=== PATIENT | male | born 1985 | race Caucasian/White ===

== ENCOUNTER → 2017-09-02 | Outpatient (CLI) | payer OTHER ==
--- NOTE | 2017-09-02 15:50 | CT ---
EXAMINATION TYPE: CT abdomen pelvis w con DATE OF EXAM: 09/02/2017 COMPARISON: NONE HISTORY: Left upper abdomen pain for past [address] DLP: 1819 mGycm CONTRAST: CT scan of the abdomen and pelvis is performed with Oral Contrast and with IV Contrast, patient injec nacho with 100 mL of Isovue 300. FINDINGS: LUNG BASES-: No visible nodule. No infiltrate. LIVER/GB: No calcified gallstones. No space occupying hepatic lesion. Biliary tree is of normal ca liber. PANCREAS: No inflammation. No distinct mass. SPLEEN: No splenic enlargement. No lesion seen. ADRENALS: No nodule. No thickening. KIDNEYS/BLADDER: No hydronephrosis. No nephrolithiasis. No distinct renal mass. Urinary bladder g rossly unremarkable. BOWEL: Normal appendix. Normal bowel caliber. No inflammation. GENITAL ORGANS: No gross abnormality. LYMPH NODES: No greater than 1cm abdominal or pelvic lymph nodes are appreciated. AORTA: No significant abnormality. OSSEOUS STRUCTURES: No significant abnormality is seen. OTHER: No significant additional abnormality is seen. IMPRESSION: 1. There is no significant abnormality to account for the patient's symptoms.
== END | disposition home or self-care (01) ==
LOC: RADCTMAIN 13:31
PROVIDERS: ATTEND Family Medicine
DX: R10.84 Generalized abdominal pain (principal)
CPT/HCPCS: 74177; Q9967

== ENCOUNTER 2019-06-07 13:06 | Emergency (ER) | payer OTHER ==
[2019-06-07 13:33] VITALS: TEMP 98.6
--- NOTE | 2019-06-07 14:47 | ED ---
General Adult HPI - General Chief complaint: Chest Pain Stated complaint: Chest/lung pain Time Seen by Provider: 06/07/19 14:13 Source: patient, RN notes reviewed, old records reviewed Mode of arrival: ambulatory Limitations: no limitations - History of Present Illness Initial comments: 34-year-old male presenting for evaluation of chest pain. Patient states over the past several days he's had wheezing episodes of left-sided chest pain. Episodes lasting approximately 5 minutes. Patient is not currently on any medications. He does not follow regularly with a physician. He has been told in the past that he has high blood pressure but is not taking any medication. He has a family history of CAD. He denies any pain at the time my evaluation. Patient denies associated nausea vomiting. No diaphoresis. Secondary complaint of left flank pain. This is also been intermittent. He denies dysuria or hematuria. Denies testicular pain. Denies fever. - Related Data Previous Rx's Medication Instructions Recorded Citalopram Hydrobromide [CeleXA] 20 mg PO DAILY #30 tab 04/18/16 LORazepam [Ativan] 0.5 mg PO HS #30 tab 16 traZODone HCL [Desyrel] 50 mg PO HS #30 tab 16 Allergies Allergy/AdvReac Type Severity Reaction Status Date / Time No Known Allergies Allergy Verified 06/07/19 13:33 Review of Systems ROS Statement: Those systems with pertinent positive or pertinent negative responses have been documented in the HPI. ROS Other: All systems not noted in ROS Statement are negative. Past Medical History Past Medical History: Hypertension Additional Past Medical History / Comment(s): Hypertension, currently on no treatment History of Any Multi-Drug Resistant Organisms: None Reported Past Surgical History: Adenoidectomy, Appendectomy, Orthopedic Surgery, Tonsillectomy Additional Past Surgical History / Comment(s): Colonoscopy, ORIF L ankle. Past Anesthesia/Blood Transfusion Reactions: No Reported Reaction Past Psychological History: Depression Smoking Status: Never smoker Past Alcohol Use History: Occasional Past Drug Use History: Marijuana - Past Family History Father Family Medical History: Diabetes Mellitus, Hypertension Mother Family Medical History: Hypertension General Exam Limitations: no limitations General appearance: alert, in no apparent distress Head exam: Present: atraumatic, normocephalic Eye exam: Present: normal appearance, PERRL ENT exam: Present: normal exam Neck exam: Present: normal inspection. Absent: tenderness, meningismus Respiratory exam: Present: normal lung sounds bilaterally. Absent: respiratory distress, wheezes Cardiovascular Exam: Present: regular rate, normal rhythm GI/Abdominal exam: Present: soft. Absent: distended, tenderness, guarding Extremities exam: Present: normal inspection, full ROM, normal capillary refill. Absent: pedal edema, calf tenderness Back exam: Present: normal inspection, full ROM Neurological exam: Present: alert, oriented X3, CN II-XII intact. Absent: motor sensory deficit Psychiatric exam: Present: normal affect, normal mood Skin exam: Present: warm, dry, intact. Absent: cyanosis, diaphoretic Course Vital Signs 06/07/19 06/07/19 06/07/19 13:31 14:29 14:30 Temperature 98.6 F Pulse Rate 90 Pulse Rate [ Technical Product Manager ] Respiratory 18 Rate Blood Pressure 159/105 O2 Sat by Pulse 99 100 100 Oximetry 06/07/19 06/07/19 06/07/19 14:37 15:00 15:30 Temperature Pulse Rate 89 Pulse Rate [ 106 H Technical Product Manager ] Respiratory 6 L Rate Blood Pressure 179/114 179/114 O2 Sat by Pulse 100 Oximetry 06/07/19 16:00 Temperature Pulse Rate 96 Pulse Rate [ Technical Product Manager ] Respiratory 20 Rate Blood Pressure 145/110 O2 Sat by Pulse 98 Oximetry EKG Findings - EKG Comments: EKG Findings:: EKG: Normal sinus rhythm with sinus arrhythmia, rate of 92, MS interval 142, QRS duration 84, QTC 4:30, no ST segment elevation, artifact in the precordial leads V2 and V3. Medical Decision Making - Medical Decision Making 34-year-old male presenting with intermittent chest pain. No pain at the time my evaluation. Symptoms have been ongoing for several weeks. He states he has had intermittent chest pain for years. EKG is sinus rhythm with no ST segment elevation. Chest x-ray is negative for focal pneumonia, no pneumothorax, no acute findings. He has normal CBC, mild hypokalemia and is instructed on oral potassium replacement. He has a mildly elevated bilirubin at 1.9 with no abdo isamar pain, no vomiting, no transaminitis. His troponin is negative and symptoms have been ongoing for several weeks. He has good follow-up with his primary care physician. His blood pressure is elevated with history of hypertension and not on medications currently. He will keep a log of his blood pressure and follow-up with his primary care physician regarding the need to be restarted on antihypertensive medications. He will return to the emergency department with worsening or changing symptoms. - Lab Data Result diagrams: 06/07/19 14:40 06/07/19 14:40 Lab Results 06/07/19 06/07/19 06/07/19 Range/Units 14:40 14:40 14:40 WBC 8.7 (3.8-10.6) k/uL RBC 5.06 (4.30-5.90) m/uL Hgb 15.9 (13.0-17.5) gm/dL Hct 46.8 (39.0-53.0) % MCV 92.5 (80.0-100.0) fL MCH 31.5 (25.0-35.0) pg MCHC 34.0 (31.0-37.0) g/dL RDW 12.3 (11.5-15.5) % Plt Count 271 (150-450) k/uL Neutrophils % 77 % Lymphocytes % 16 % Monocytes % 5 % Eosinophils % 1 % Basophils % 1 % Neutrophils # 6.6 (1.3-7.7) k/uL Lymphocytes # 1.4 (1.0-4.8) k/uL Monocytes # 0.4 (0-1.0) k/uL Eosinophils # 0.1 (0-0.7) k/uL Basophils # 0.1 (0-0.2) k/uL PT 10.3 (9.0-12.0) sec INR 1.0 (<1.2) APTT 25.1 (22.0-30.0) sec Sodium 136 L (137-145) mmol/L Potassium 3.4 L (3.5-5.1) mmol/L Chloride 98 (98-107) mmol/L Carbon Dioxide 26 (22-30) mmol/L Anion Gap 12 mmol/L BUN 7 L (9-20) mg/dL Creatinine 0.82 (0.66-1.25) mg/dL Est GFR (CKD-EPI)AfAm >90 (>60 ml/min/1.73 sqM) Est GFR (CKD-EPI)NonAf >90 (>60 ml/min/1.73 sqM) Glucose 99 (74-99) mg/dL Calcium 9.5 (8.4-10.2) mg/dL Magnesium 1.9 (1.6-2.3) mg/dL Total Bilirubin 1.9 H (0.2-1.3) mg/dL AST 28 (17-59) U/L ALT 15 (4-49) U/L Alkaline Phosphatase 89 (38-126) U/L Troponin I (0.000-0.034) ng/mL Total Protein 8.4 H (6.3-8.2) g/dL Albumin 5.1 H (3.5-5.0) g/dL Urine Color Urine Appearance (Clear) Urine pH (5.0-8.0) Ur Specific Fate (1.001-1.035) Urine Protein (Negative) Urine Glucose (UA) (Negative) Urine Ketones (Negative) Urine Blood (Negative) Urine Nitrite (Negative) Urine Bilirubin (Negative) Urine Urobilinogen (<2.0) mg/dL Ur Leukocyte Esterase (Negative) Urine RBC (0-5) /hpf Urine WBC (0-5) /hpf Urine Bacteria (None) /hpf Hyaline Casts (0-2) /lpf Urine Mucus (None) /hpf 06/07/19 06/07/19 Range/Units 14:40 15:55 WBC (3.8-10.6) k/uL RBC (4.30-5.90) m/uL Hgb (13.0-17.5) gm/dL Hct (39.0-53.0) % MCV (80.0-100.0) fL MCH (25.0-35.0) pg MCHC (31.0-37.0) g/dL RDW (11.5-15.5) % Plt Count (150-450) k/uL Neutrophils % % Lymphocytes % % Monocytes % % Eosinophils % % Basophils % % Neutrophils # (1.3-7.7) k/uL Lymphocytes # (1.0-4.8) k/uL Monocytes # (0-1.0) k/uL Eosinophils # (0-0.7) k/uL Basophils # (0-0.2) k/uL PT (9.0-12.0) sec INR (<1.2) APTT (22.0-30.0) sec Sodium (137-145) mmol/L Potassium (3.5-5.1) mmol/L Chloride (98-107) mmol/L Carbon Dioxide (22-30) mmol/L Anion Gap mmol/L BUN (9-20) mg/dL Creatinine (0.66-1.25) mg/dL Est GFR (CKD-EPI)AfAm (>60 ml/min/1.73 sqM) Est GFR (CKD-EPI)NonAf (>60 ml/min/1.73 sqM) Glucose (74-99) mg/dL Calcium (8.4-10.2) mg/dL Magnesium (1.6-2.3) mg/dL Total Bilirubin (0.2-1.3) mg/dL AST (17-59) U/L ALT (4-49) U/L Alkaline Phosphatase (38-126) U/L Troponin I <0.012 (0.000-0.034) ng/mL Total Protein (6.3-8.2) g/dL Albumin (3.5-5.0) g/dL Urine Color Yellow Urine Appearance Clear (Clear) Urine pH 6.5 (5.0-8.0) Ur Specific Fate 1.022 (1.001-1.035) Urine Protein 1+ H (Negative) Urine Glucose (UA) Negative (Negative) Urine Ketones Negative (Negative) Urine Blood Negative (Negative) Urine Nitrite Negative (Negative) Urine Bilirubin Negative (Negative) Urine Urobilinogen <2.0 (<2.0) mg/dL Ur Leukocyte Esterase Negative (Negative) Urine RBC 1 (0-5) /hpf Urine WBC 3 (0-5) /hpf Urine Bacteria Rare H (None) /hpf Hyaline Casts 6 H (0-2) /lpf Urine Mucus Many H (None) /hpf Disposition Clinical Impression: Chest pain, Hypertension Disposition: HOME SELF-CARE Condition: Good Instructions (If sedation given, give patient instructions): Chest Pain (ED), Hypertension (ED) Is patient prescribed a controlled substance at d/c from ED?: No Referrals: Kiet Tomlin Jr, DO [Primary Care Provider] - 1-2 days Time of Disposition: 16:41
[2019-06-07 14:54] LABS: Basophils # (A) 0.1 k/uL (0-0.2); Basophils % (A) 1 %; Eosinophils # (A) 0.1 k/uL (0-0.7); Eosinophils % (A) 1 %; HCT 46.8 % (39.0-53.0); HGB 15.9 gm/dL (13.0-17.5); Lymphocytes # (A) 1.4 k/uL (1.0-4.8); Lymphocytes % (A) 16 %; MCH 31.5 pg (25.0-35.0); MCV 92.5 fL (80.0-100.0); Mean Platelet Volume 7.4; Monocytes # (A) 0.4 k/uL (0-1.0); Monocytes % (A) 5 %; Neutrophils # (A) 6.6 k/uL (1.3-7.7); Neutrophils % (A) 77 %; Platelet Count 271 k/uL (150-450); RBC 5.06 m/uL (4.30-5.90); RDW 12.3 % (11.5-15.5); WBC 8.7 k/uL (3.8-10.6)
[2019-06-07 15:03] LABS: ALT 15 U/L (4-49); AST 28 U/L (17-59); African American GFR (CKD) >90 (>60 ml/min/1.73 sqM); Albumin 5.1 g/dL (3.5-5.0); Alkaline Phosphatase 89 U/L (38-126); Anion Gap 12 mmol/L; Blood Urea Nitrogen 7 mg/dL (9-20); Calcium 9.5 mg/dL (8.4-10.2); Carbon Dioxide 26 mmol/L (22-30); Chloride 98 mmol/L (98-107); Glucose 99 mg/dL (74-99); Magnesium 1.9 mg/dL (1.6-2.3); Non-African American GFR(CKD) >90 (>60 ml/min/1.73 sqM); Potassium 3.4 mmol/L (3.5-5.1); Sodium 136 mmol/L (137-145); Total Bilirubin 1.9 mg/dL (0.2-1.3); Total Protein 8.4 g/dL (6.3-8.2)
--- NOTE | 2019-06-07 15:04 | XR ---
EXAMINATION TYPE: XR chest 2V DATE OF EXAM: 06/07/2019 COMPARISON: 04/15/2016 INDICATION: Chest pain TECHNIQUE: Frontal and lateral views of the chest are obtained. FINDINGS: The heart size is normal. The pulmonary vasculature is normal. The lungs are clear. IMPRESSION: 1. No acute pulmonary process.
[2019-06-07 15:10] LABS: Partial Thromboplastin Time 25.1 sec (22.0-30.0); Prothrombin Time 10.3 sec (9.0-12.0)
[2019-06-07 16:25] LABS: Appearance,Urine Clear (Clear); Bacteria,Urine Rare /hpf; Bilirubin,Urine Negative (Negative); Blood,Urine Negative (Negative); Color,Urine Yellow; Glucose,Urine (UA) Negative (Negative); Hyaline Casts,Urine 6 /lpf (0-2); Ketones,Urine Negative (Negative); Leukocyte Esterase,Urine Negative (Negative); Mucus,Urine Many /hpf; Nitrite,Urine Negative (Negative); PH, Urine 6.5 (5.0-8.0); Protein,Urine 1+ (Negative); RBC,Urine 1 /hpf (0-5); Specific Gravity,Urine 1.022 (1.001-1.035); Urobilinogen,Urine <2.0 mg/dL (<2.0); WBC,Urine 3 /hpf (0-5)
[2019-06-07 16:30] VITALS: BP 145/110; PULSE 96; RESP 20
== END 2019-06-07 17:05 | disposition home or self-care (01) ==
LOC: EC 13:06
DX: I10 Essential (primary) hypertension (principal); R07.9 Chest pain, unspecified; E87.6 Hypokalemia; R79.89 Other specified abnormal findings of blood chemistry; R10.9 Unspecified abdominal pain; Z90.49 Acquired absence of other specified parts of digestive tract; Z82.49 Family history of ischemic heart disease and other diseases of the circulatory system
CPT/HCPCS: 36415; 71046; 80053; 81001; 83735; 84484; 85025; 85610; 85730; 99285

== ENCOUNTER 2019-10-27 10:56 | Observation (INO) | payer OTHER ==
[2019-10-27] MEDS ORDERED: ASPIRIN 81 MG PO STA (11:40)
[2019-10-27] MEDS ORDERED: hydrALAZINE HCL 25 MG TAB PO STA (11:40)
[2019-10-27 12:10] LABS: Basophils % (A) 0 %; Eosinophils # (A) 0.1 k/uL (0-0.7); Eosinophils % (A) 1 %; HCT 47.5 % (39.0-53.0); HGB 16.3 gm/dL (13.0-17.5); Lymphocytes % (A) 11 %; MCH 32.9 pg (25.0-35.0); MCHC 34.3 g/dL (31.0-37.0); MCV 95.8 fL (80.0-100.0); Mean Platelet Volume 7.4; Monocytes # (A) 0.5 k/uL (0-1.0); Monocytes % (A) 5 %; Neutrophils % (A) 82 %; Platelet Count 342 k/uL (150-450); RBC 4.95 m/uL (4.30-5.90); RDW 12.2 % (11.5-15.5); WBC 9.7 k/uL (3.8-10.6)
[2019-10-27 12:22] LABS: ALT 56 U/L (4-49); AST 71 U/L (17-59); African American GFR (CKD) >90 (>60 ml/min/1.73 sqM); Albumin 4.7 g/dL (3.5-5.0); Alkaline Phosphatase 86 U/L (38-126); Anion Gap 14 mmol/L; Blood Urea Nitrogen 11 mg/dL (9-20); Calcium 9.3 mg/dL (8.4-10.2); Carbon Dioxide 22 mmol/L (22-30); Chloride 100 mmol/L (98-107); Glucose 86 mg/dL (74-99); Magnesium 1.8 mg/dL (1.6-2.3); Non-African American GFR(CKD) >90 (>60 ml/min/1.73 sqM); Potassium 4.4 mmol/L (3.5-5.1); Sodium 136 mmol/L (137-145); Total Bilirubin 1.3 mg/dL (0.2-1.3); Total Protein 7.8 g/dL (6.3-8.2)
[2019-10-27 12:27] LABS: INR 1.1 (<1.2); Partial Thromboplastin Time 25.2 sec (22.0-30.0); Prothrombin Time 10.9 sec (9.0-12.0)
[2019-10-27 12:28] LABS: D-Dimer <0.17 mg/L FEU (<0.60)
--- NOTE | 2019-10-27 12:47 | XR ---
EXAMINATION TYPE: XR chest 2V DATE OF EXAM: 10/27/2019 COMPARISON: Chest x-ray 06/07/2019, CT 09/02/2017 HISTORY: Chest pain TECHNIQUE: Frontal and lateral views of the chest are obtained. FINDINGS: There is no focal air space opacity, pleural effusion, or pneumothorax seen. The cardiac silhouette size is within normal limits. The osseous structures are intact. There are overlying car diac leads. Blunting of the posterior costophrenic angle on the lateral exam is a chronic finding. IMPRESSION: No acute cardiopulmonary process.
[2019-10-27] MEDS ORDERED: LABETALOL 5 MG/ML VIAL MDV IVP STA ×2 (13:12→15:25)
--- NOTE | 2019-10-27 13:17 | ED ---
Chest Pain HPI - General Chief Complaint: Chest Pain Stated Complaint: chest muscle pain/lightheaded & dizziness Time Seen by Provider: 10/27/19 11:40 Source: patient Mode of arrival: ambulatory Limitations: no limitations - History of Present Illness Initial Comments: 34-year-old male presented for chief complaint of chest pain, shortness of breath and lightheadedness. Patient states the past and states he has had left- sided chest pain, achey in nature he states it comes and goes in intensity but is constantly present. Patietn states it increases with motion at times/palpation. Denies exercising, trauma, repetitive injury. Denies fever, URI symptoms. States today the pain seemed to increase, he states he felt warm and felt sweaty. Patient states that on and off for the last 6-7 days he has at time felt SOB and light headed. Patient states that his father has a cholesterol issue and has had cardiac history including WI at age 26. Patient states he himself has had HTN since age 20 and has been off medications secondary to an outstanding bill with Dr. Ley office. Patient denies additional complaints. Denies back pain, hemoptysis, leg swelling, jaw pain. Patient does admit to the pain being pleurtic at time. Patient denies clotting disorder or history of DVT/PE, denies recent surgery/injury or fracture, hx of cancer. Upon arrival taylor martin does not appear in distress but his BP is elevated. - Related Data Home Medications Medication Instructions Recorded Confirmed Escitalopram [Lexapro] 10 mg PO DAILY 10/27/19 10/27/19 Allergies Allergy/AdvReac Type Severity Reaction Status Date / Time No Known Allergies Allergy Verified 06/07/19 13:33 Review of Systems ROS Statement: Those systems with pertinent positive or pertinent negative responses have been documented in the HPI. ROS Other: All systems not noted in ROS Statement are negative. Past Medical History Past Medical History: Hypertension Additional Past Medical History / Comment(s): Hypertension, currently on no treatment History of Any Multi-Drug Resistant Organisms: None Reported Past Surgical History: Adenoidectomy, Appendectomy, Orthopedic Surgery, Tonsillectomy Additional Past Surgical History / Comment(s): Colonoscopy, ORIF L ankle. Past Anesthesia/Blood Transfusion Reactions: No Reported Reaction Past Psychological History: Depression Smoking Status: Never smoker Past Alcohol Use History: Occasional Past Drug Use History: Marijuana - Past Family History Father Family Medical History: Diabetes Mellitus, Hypertension Mother Family Medical History: Hypertension General Exam - General Exam Comments Initial Comments: General: The patient is awake and alert, in no distress Eye: +3 mm pupils are equal, round and reactive to light, extra-ocular movements are intact. No nystagmus. There is normal conjunctiva bilaterally. No signs of icterus. Ears, nose, mouth and throat: There are moist mucous membranes and no oral lesions. Neck: The neck is supple, there is no tenderness or JVD. Cardiovascular: There is a regular rate and rhythm. No murmur, rub or gallop is appreciated. Respiratory: Lungs are clear to auscultation, respirations are non-labored, breath sounds are equal. No wheezes, stridor, rales, or rhonchi. Gastrointestinal: Soft, non-distended, non-tender abdomen without masses or organomegaly noted. There is no rebound or guarding present. Musculoskeletal: Normal ROM, no tenderness. Strength 5/5. Sensation intact. Radial pulses equal bilaterally 2+. Neurological: A&O x 3. CN II-XII intact grossly, There are no obvious motor or sensory deficits. Coordination appears grossly intact. Speech is normal. Skin: Skin is warm and dry and no rashes or lesions are noted. No Leg swelling, LE edema. Psychiatric: Cooperative, appropriate mood & affect, normal judgment. 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 ] Respiratory 20 17 Rate Blood Pressure 166/113 154/110 O2 Sat by Pulse 100 98 99 Oximetry 10/27/19 10/27/19 10/27/19 11:40 11:50 11:52 Temperature Pulse Rate 95 102 H 103 H Pulse Rate [ Road Service Locksmith ] Respiratory 17 20 18 Rate Blood Pressure 146/107 152/110 152/110 O2 Sat by Pulse 100 99 98 Oximetry 10/27/19 10/27/19 10/27/19 12:10 12:17 12:30 Temperature Pulse Rate 101 H 107 H Pulse Rate [ [address] Locksmith ] Respiratory 17 19 Rate Blood Pressure 172/111 166/108 O2 Sat by Pulse 100 Oximetry 10/27/19 10/27/19 10/27/19 12:40 13:00 13:11 Temperature 98.7 F Pulse Rate 106 H 105 H Pulse Rate [ Road Service Locksmith ] Respiratory 16 19 Rate Blood Pressure 151/113 164/114 O2 Sat by Pulse 100 98 Oximetry Chest Pain MDM - MDM 32 mL presented for chief complaint of chest pain. It is somewhat reproducible and increases with motion however patient states that it increased today he is diaphoretic. Patient has elevated blood pressure has been uncontrolled for 6 months and a strong familial history for premature CAD. This is concerning for a possible cardiac cause althought clinical picture is very mixed givne history provided and appears reproducible. Patient initial troponin (-). BP remains elevated. patient dimer (-). He will be admitted for BP management and CP r/o. Patient agreeable to admission and care plan- attending provider. Dr. Nuñez is agreeable to care plan. Disposition Clinical Impression: Chest pain, Elevated blood pressure reading Disposition: ADMITTED IP TO THIS [facility] Condition: Stable Is patient prescribed a controlled substance at d/c from ED?: No Referrals: Kiet Tomlin Jr, [Primary Care Provider] - 1-2 days Time of Disposition: 13:40 Decision to Admit Reason: Admit from EC Decision Date: 10/27/19 Decision Time: 13:40
[2019-10-27] MEDS ORDERED: NITROGLYCERIN SL TABS 0.4 MG TAB SUBLINGUAL PRN (13:37)
[2019-10-27] MEDS ORDERED: LORazepam 1 MG TAB PO STA (13:40)
[2019-10-28] MEDS ORDERED: ACETAMINOPHEN TAB 325 MG TAB PO STA ×2 (00:28→04:24)
[2019-10-28 04:17] LABS: Cholesterol 189 mg/dL (<200); HDL Cholesterol 81 mg/dL (40-60)
[2019-10-28 04:24] LABS: Triglycerides 593 mg/dL (<150)
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
[2019-10-28] MEDS: ASPIRIN 325 MG TAB PO SCH (11:50)
[2019-10-28] MEDS: ESCITALOPRAM 10 MG TAB PO SCH (11:51)
--- NOTE | 2019-10-28 13:39 | ECHOF ---
Referral Reason:CP MEASUREMENTS -------- HEIGHT: 172.7 cm WEIGHT: 86.2 kg BP: 141/94 RVIDd: 3.2 cm (< 3.3) IVSd: 1.2 cm (0.6 - 1.1) LVIDd: 5.1 cm (3.9 - 5.3) LVPWd: 1.0 cm (0.6 - 1.1) IVSs: 1.5 cm LVIDs: 3.8 cm LVPWs: 1.8 cm LA Diam: 3.4 cm (2.7 - 3.8) LAESV Index (A-L): 21.32 ml/m Ao Diam: 3.6 cm (2.0 - 3.7) AV Cusp: 2.7 cm (1.5 - 2.6) MV EXCURSION: 21.562 mm (> 18.000) MV EF SLOPE: 112 mm/s (70 - 150) EPSS: 1.3 cm MV E Alcides: 0.74 m/s MV DecT: 261 ms MV A Alcides: 0.64 m/s MV E/A Ratio: 1.16 FINDINGS -------- Sinus rhythm. This was a technically excellent study. The left ventricular size is normal. There is borderline concentric left ventricular hypertrophy. Overall left ventricular systolic function is mild-moderately impaired with, an EF between 40 - 45 % . The right ventricle is normal in size. Normal LA size by volume 22+/-6 ml/m2. The right atrium is normal in size. Interatrial and interventricular septum intact. The aortic valve is trileaflet and appears structurally normal. The mitral valve is normal. The tricuspid valve appears structurally normal. There is no pulmonic regurgitation present. The aortic root size is normal. Normal inferior vena cava with normal inspiratory collapse consistent with estimated right atrial pre ssure of 5 mmHg. There is no pericardial effusion. CONCLUSIONS -------- 1. Sinus rhythm. 2. This was a technically excellent study. 3. The left ventricular size is normal. 4. There is borderline concentric left ventricular hypertrophy. 5. Overall left ventricular systolic function is mild-moderately impaired with, an EF between 40 - 45 %. 6. The right ventricle is normal in size. 7. Normal LA size by volume 22+/-6 ml/m2. 8. The right atrium is normal in size. 9. Interatrial and interventricular septum intact. 10. The aortic valve is trileaflet and appears structurally normal. 11. The mitral valve is normal. 12. The tricuspid valve appears structurally normal. 13. There is no pulmonic regurgitation present. 14. The aortic root size is normal. 15. Normal inferior vena cava with normal inspiratory collapse consistent with estimated right atrial pressure of 5 mmHg. 16. There is no pericardial effusion. [employer]: Arely Camejo RDCS
[2019-10-28] MEDS ORDERED: SODIUM CHLORIDE 0.9% 1,000 ML in EMPTY BAG 1 BAG IV ONE (13:41)
[2019-10-28] MEDS ORDERED: ALPRAZolam 0.5 MG TAB PO PRN (13:41)
[2019-10-28] MEDS ORDERED: ATORVASTATIN 80 MG TAB PO STA (13:41)
[2019-10-28] MEDS ORDERED: ALPRAZolam 0.25 MG TAB PO PRN (13:41)
--- NOTE | 2019-10-28 13:43 | P.PN ---
Progress Note - Text Given the patient's impaired LV systolic function we recommended proceeding with cardiac catheterization to assess for underlying coronary artery disease. I have discussed the risks, benefits and alternative therapies for the above-mentioned procedure and for both sedation/analgesia as well as necessary blood product administration, if indicated, as they pertain to this patient. The patient has indicated understanding and acceptance of the risks and procedures discussed. Questions have been answered appropriately and he is agreeable to move forward with the above stated procedure. We also recommend initiation of Lopressor 25 mg twice a day, lisinopril 5 mg daily and Aldactone 25 mg daily.
[2019-10-28] MEDS: lisinopriL 5 MG TAB PO SCH (14:18)
[2019-10-28] MEDS: SPIRONOLACTONE 25 MG TAB PO SCH (14:18)
[2019-10-28] MEDS: METOPROLOL TARTRATE 25 MG TAB PO SCH ×2 (14:18→22:50)
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
[2019-10-28] MEDS ORDERED: HEPARIN SODIUM 1,000 UN/ML (10ML VL) ONE (17:44)
[2019-10-28] MEDS ORDERED: VERAPAMIL 2.5 MG/ML 2 ML AMP ONE (17:44)
[2019-10-28] MEDS ORDERED: LIDOCAINE 1% INJ 10MG/ML (20 ML MDV) ONE (17:44)
[2019-10-28] MEDS ORDERED: IV FLUID CONTINUATION 950 ML IV ONE (17:47)
[2019-10-28] MEDS ORDERED: fentaNYL (PF) 50 MCG/ML 2 ML AMP ONE (18:18)
[2019-10-28] MEDS ORDERED: MIDAZOLAM 2 MG/2 ML VIAL IV ONE ×2 (18:18→18:20)
[2019-10-28] MEDS ORDERED: fentaNYL (PF) 50 MCG/ML 2 ML AMP IV ONE (18:21)
[2019-10-28] MEDS ORDERED: LIDOCAINE 1% INJ 10MG/ML (20 ML MDV) SQ ONE (18:22)
[2019-10-28] MEDS ORDERED: VERAPAMIL SYRINGE (5 MG/10 ML) INTRAARTER ONE (18:25)
[2019-10-28] MEDS ORDERED: IOPAMIDOL-370 100ML BTL INJ ONE (18:39)
[2019-10-28] MEDS ORDERED: RX INFO: IV CONTRAST WAS GIVEN 1 EACH MISC MISCELLANE PRN (18:40)
[2019-10-28] MEDS ORDERED: SODIUM CHLORIDE 0.9% 1,000 ML IV SCH (18:45)
--- NOTE | 2019-10-28 19:32 | CC ---
CARDIAC CATHETERIZATION REPORT DATE OF SERVICE: 10/28/2019 PERFORMING PHYSICIAN: Rashaad Glass M.D. PROCEDURE PERFORMED: Selective right and left coronary angiogram. INDICATION: This is a very pleasant 34-year-old gentleman who presented to the hospital with chest discomfort and ruled out for acute coronary event. He underwent an echocardiogram and that revealed impaired LV function with EF between 40% and 45%. He underwent stress echocardiogram and that also came in to be concerning with evidence of wall motion abnormalities concerning for severe underlying coronary artery disease. Because of that a heart catheterization was advised. APPROACH: Right radial artery. COMPLICATIONS: None. LEVEL OF SEDATION: Moderate, with sedation length of 11 minutes. PROCEDURE DESCRIPTION: After obtaining informed consent, the patient was brought to the cardiac collaborating supervising physician. The right radial artery was cannulated using micropuncture technique. The micropuncture wire passed easily. Then I placed a 6-Ugandan sheath. I gave the patient 2 mg of verapamil IA and 8000 of heparin IV. Selective right and left coronary angiogram was performed using JR4 and JL3.5 catheters. Left heart catheterization was not performed. The procedure was completed without any complication. SELECTIVE CORONARY ANGIOGRAM: 1. The right coronary artery is a large-caliber vessel and it is a dominant vessel. The RCA is angiographically normal. It distally bifurcates into PDA and PLV branches. Both appeared to be angiographically normal. 2. The left main is angiographically normal. It bifurcates into LCX and LAD. 3. The LCX is a large-caliber vessel. It is a nondominant vessel. The LCX is angiographically normal. In the mid portion it gives rise to a large OM branch which appeared to be angiographically normal. 4. The LAD. The proximal LAD appeared to be angiographically normal. It gives rise to a large diagonal branch which seems to be normal. The mid and distal LAD appeared to be angiographically normal. The LAD in the proximal portion gives rise to first and second diagonal branches. Both appeared to be angiographically normal. CONCLUSION: 1. Normal coronary angiogram. 2. Nonischemic cardiomyopathy. POST-PROCEDURE MANAGEMENT: 1. Medical treatment. 2. Follow up with the patient. MMODL / IJN: [id number] /
--- NOTE | 2019-10-28 20:20 | ECHOS ---
STRESS ECHOCARDIOGRAM LUMASON: @@ Vial INDICATIONS: Status post. MEDICATIONS: BASELINE HEART RATE: 76 BASELINE BLOOD PRESSURE: 144/101 MAXIMUM HEART RATE: 185 MAXIMUM BLOOD PRESSURE: 196/98 85% MPHR: 160 100% MPHR: 188 METS: 12.1 MAXIMUM STAGE REACHED: 4 TOTAL EXERCISE TIME: 11:00 CLINICAL INFORMATION: STRESS DATA: Heart rate 76, pressure 144/101 mmHg. Baseline EKG showed sinus mechanism. The patient exercised on the treadmill according to Too protocol for a total of 11 minutes and achieved 12.1 METS. Max heart rate was 185, which is about 98% of maximum predicted heart rate. Maximum blood pressure was 196/98 mmHg. Clinically the patient did not have any symptoms of chest pain or chest discomfort. The EKG did not show any significant ST or T-wave abnormalities concerning for ischemia. ECHOCARDIOGRAM IMAGES: Echocardiogram images from parasternal long axis view, parasternal short axis view, apical 4- chamber and apical 2-chamber views were obtained as the baseline images, at the peak of the heart rate as well as on recovery. The baseline echocardiogram images showed impaired LV function with EF between 40% and 45% and during exercise and at the peak of the exercise, on the apical 4-chamber view there were some wall motion abnormalities in the mid septum concerning for severe underlying coronary artery disease. CONCLUSION: 1. Excellent exercise tolerance. 2. Normal EKG in response to exercise. 3. Abnormal echocardiogram in response to exercise with evidence of wall motion abnormalities concerning for severe underlying coronary artery disease. MMODL / IJN: [id number] /
[2019-10-28] MEDS: MELATONIN 5 MG TABLET PO SCH ×2 (22:50)
[2019-10-29 08:00] VITALS: BP 146/94; PULSE 84; RESP 18; TEMP 97.6
[2019-10-29] MEDS: ASPIRIN 325 MG TAB PO SCH (08:08)
[2019-10-29] MEDS: lisinopriL 5 MG TAB PO SCH (08:08)
[2019-10-29] MEDS: ESCITALOPRAM 10 MG TAB PO SCH (08:08)
[2019-10-29] MEDS: METOPROLOL TARTRATE 25 MG TAB PO SCH (08:08)
[2019-10-29] MEDS: SPIRONOLACTONE 25 MG TAB PO SCH (08:08)
[2019-10-29] MEDS ORDERED: ATORVASTATIN 40 MG TAB PO SCH (09:00)
[2019-10-29] MEDS ORDERED: lisinopriL 5 MG TAB PO SCH (10:00)
--- NOTE | 2019-10-29 10:27 | PN ---
PROGRESS NOTE Mr. Rolon had a cardiac cath from right radial approach by Dr. Glass for atypical chest pain. He is comfortable resting. His right radial cath site is clean and dry. Vital signs stable. No JVD. S1, S2 heard normally. Lungs are clear. Abdomen and lower extremity exam unchanged. His radial cath site is clean and dry. He has no significant obstructive CAD. He can be discharged and see Dr. Glass in one week in the office. Discharge instructions and care for his radial cath site were given. MMODL / IJN: [id number] /
--- NOTE | 2019-10-29 11:14 | P.DS ---
Providers Date of admission: 10/27/19 14:21 Expected date of discharge: 10/29/19 Attending physician: Kiet Tomlin Consults: 10/27/19 13:37 Consult Physician Routine Consulting Provider: Rashaad Glass Consult Reason/Comments: chest pain r/o, history of premature CAD in family Do you want consulting provider notified?: Yes, Notify in am Primary care physician: [facility] Course: Presented via the emergency room with chest pain, hypertension , known family history of coronary artery disease patient's father had heart attack angioplasty with stent placement at a very young adult age Troponins were within normal limits, echocardiogram suggested mild hypertensive cardiomyopathy with a slightly diminished EF The decision was made to have patient undergo catheterization, which turned out to be completely normal Patient has been started on metoprolol 25 mg twice daily, lisinopril 5 mg twice daily spironolactone 25 mg once daily Atorvastatin 40 mg once daily Patient Condition at Discharge: Stable Plan - Discharge Summary Discharge Rx Participant: No New Discharge Prescriptions: New Spironolactone [Aldactone] 25 mg PO DAILY #30 tablet Atorvastatin Calcium [Lipitor] 40 mg PO HS #30 tablet Lisinopril [Zestril] 5 mg PO BID #60 tablet Bisoprolol-Hctz 10-6.25 mg [Ziac 10-6.25 MG] 1 tab PO DAILY #30 tablet No Action Escitalopram [Lexapro] 10 mg PO DAILY Discharge Medication List Escitalopram [Lexapro] 10 mg PO DAILY 10/27/19 [History] Atorvastatin Calcium [Lipitor] 40 mg PO HS #30 tablet 10/29/19 [Rx] Bisoprolol-Hctz 10-6.25 mg [Ziac 10-6.25 MG] 1 tab PO DAILY #30 tablet 10/29/19 [Rx] Lisinopril [Zestril] 5 mg PO BID #60 tablet 10/29/19 [Rx] Spironolactone [Aldactone] 25 mg PO DAILY #30 tablet 10/29/19 [Rx] Follow up Appointment(s)/Referral(s): Kiet Tomlin Jr, [Primary Care Provider] - 1-2 days
== END 2019-10-29 13:33 | disposition home or self-care (01) ==
LOC: EC 10:56 → INTOOBSV 14:21 → 1SOBS 14:21 → OBSVTOIN 14:21 → 1SOBS 17:06 → UNDODISIN 10-29 13:33
PROVIDERS: ADMIT Family Medicine; ATTEND Family Medicine
DX: R07.89 Other chest pain (principal); I11.0 Hypertensive heart disease with heart failure; I50.9 Heart failure, unspecified; R00.0 Tachycardia, unspecified; E66.9 Obesity, unspecified; E78.1 Pure hyperglyceridemia; Z68.28 Body mass index [BMI] 28.0-28.9, adult; Z03.818 Encounter for observation for suspected exposure to other biological agents ruled out; Z82.49 Family history of ischemic heart disease and other diseases of the circulatory system; F19.11 Other psychoactive substance abuse, in remission; Z91.5 Personal history of self-harm; F10.11 Alcohol abuse, in remission; Z98.890 Other specified postprocedural states; F32.9 Major depressive disorder, single episode, unspecified; Z83.3 Family history of diabetes mellitus; Z83.438 Family history of other disorder of lipoprotein metabolism and other lipidemia; Z82.69 Family history of other diseases of the musculoskeletal system and connective tissue; F98.8 Other specified behavioral and emotional disorders with onset usually occurring in childhood and adolescence; Z79.899 Other long term (current) drug therapy
CPT/HCPCS: 93005 ×2; 96376; 96374; 99285; 36415; 93306; 93351; 93454; 85379; 80061; 80053; 83735; 84484; 85025; 85610; 85730; 71046; G0378 ×3; C1769; C1894; U0003; J2250; J2001; J3010; J1644; Q9967

== ENCOUNTER 2019-11-05 03:20 | Emergency (ER) | payer OTHER ==
[2019-11-05 04:04] LABS: Basophils # (A) 0.1 k/uL (0-0.2); Basophils % (A) 1 %; Eosinophils # (A) 0.1 k/uL (0-0.7); Eosinophils % (A) 2 %; HCT 46.3 % (39.0-53.0); HGB 15.8 gm/dL (13.0-17.5); Lymphocytes % (A) 29 %; MCH 32.1 pg (25.0-35.0); MCHC 34.2 g/dL (31.0-37.0); MCV 93.8 fL (80.0-100.0); Mean Platelet Volume 7.3; Monocytes # (A) 0.4 k/uL (0-1.0); Monocytes % (A) 5 %; Neutrophils # (A) 4.3 k/uL (1.3-7.7); Neutrophils % (A) 61 %; Platelet Count 355 k/uL (150-450); RBC 4.93 m/uL (4.30-5.90); RDW 12.2 % (11.5-15.5)
[2019-11-05 04:16] LABS: ALT 106 U/L (4-49); AST 275 U/L (17-59); African American GFR (CKD) >90 (>60 ml/min/1.73 sqM); Albumin 4.4 g/dL (3.5-5.0); Alkaline Phosphatase 89 U/L (38-126); Anion Gap 10 mmol/L; Blood Urea Nitrogen 13 mg/dL (9-20); Calcium 9.2 mg/dL (8.4-10.2); Carbon Dioxide 27 mmol/L (22-30); Chloride 101 mmol/L (98-107); Creatine Kinase 27 U/L (55-170); Glucose 112 mg/dL (74-99); Magnesium 2.1 mg/dL (1.6-2.3); Non-African American GFR(CKD) >90 (>60 ml/min/1.73 sqM); Potassium 4.2 mmol/L (3.5-5.1); Sodium 138 mmol/L (137-145); Total Bilirubin 0.8 mg/dL (0.2-1.3); Total Protein 6.9 g/dL (6.3-8.2)
--- NOTE | 2019-11-05 04:22 | ED ---
General Adult HPI - General Chief complaint: Weakness Stated complaint: Disoriented, body tingles Time Seen by Provider: 11/05/19 03:36 Source: patient Mode of arrival: ambulatory Limitations: no limitations - History of Present Illness Initial comments: Tk is a 34-year-old male who presents to ER today reporting he just doesn't feel right. He reports that his whole body feels kind of tingly. He states that he was recently hospitalized for the cardiac catheterization he was discharged home on a few new medications he can't recall what they are. He states he's been compliant with all his medications. He is not certain if it's is a medication reaction. - Related Data Home Medications Medication Instructions Recorded Confirmed Escitalopram [Lexapro] 10 mg PO DAILY 10/27/19 10/27/19 Previous Rx's Medication Instructions Recorded Atorvastatin Calcium [Lipitor] 40 mg PO HS #30 tablet 10/29/19 Bisoprolol-Hctz 10-6.25 mg [Ziac 1 tab PO DAILY #30 tablet 10/29/19 10-6.25 MG] Lisinopril [Zestril] 5 mg PO BID #60 tablet 10/29/19 Spironolactone [Aldactone] 25 mg PO DAILY #30 tablet 10/29/19 Allergies Allergy/AdvReac Type Severity Reaction Status Date / Time No Known Allergies Allergy Verified 11/05/19 03:28 Review of Systems ROS Statement: Those systems with pertinent positive or pertinent negative responses have been documented in the HPI. ROS Other: All systems not noted in ROS Statement are negative. Past Medical History Past Medical History: Hypertension Additional Past Medical History / Comment(s): Hypertension, currently on no treatment History of Any Multi-Drug Resistant Organisms: None Reported Past Surgical History: Adenoidectomy, Appendectomy, Orthopedic Surgery, Tonsillectomy Additional Past Surgical History / Comment(s): Colonoscopy, ORIF L ankle. Past Anesthesia/Blood Transfusion Reactions: No Reported Reaction Past Psychological History: Depression Smoking Status: Never smoker Past Alcohol Use History: Occasional - Past Family History Father Family Medical History: Diabetes Mellitus, Hyperlipidemia, Hypertension Additional Family Medical History / Comment(s): gout Mother Family Medical History: Hypertension General Exam - General Exam Comments Initial Comments: Physical Exam GENERAL: Patient is well-developed and well-nourished. Patient is nontoxic and well-hydrated and is in no distress. HENT: Normocephalic, Atraumatic. EYES: PERRL, EOMI PULMONARY: Unlabored respirations. CARDIOVASCULAR: RRR Warm and well perfused extremities ABDOMEN: Non-distended SKIN: No rashes or bruising : Deferred NEUROLOGIC: Alert and oriented Normal speech Normal gait MUSCULOSKELETAL: Moving all extremities with no apparent injury PSYCHIATRIC: No SI/HI Limitations: no limitations Course Vital Signs 11/05/19 03:22 Temperature 98 F Pulse Rate 62 Respiratory 18 Rate Blood Pressure 131/83 O2 Sat by Pulse 99 Oximetry EKG Findings - EKG Comments: EKG Findings:: EKG was obtained at 3:30 AM rate 79 rhythm is sinus there are T- wave inversions laterally Medical Decision Making - Medical Decision Making The patient was seen and evaluated history obtained from patient and review of medical records EKG was obtained and there are T-wave inversions however the patient is chest pain-free with no shortness of breath or other symptoms he did have a clean cardiac catheterization on the first of this month Previous discharge summary reveals the patient was started on Lipitor, lisinopril, hydrochlorothiazide In addition patient reports he still taking his Lexapro unchanged dosing Labs were obtained Labs reveal mild transaminitis this is new for the patient An ammonia level was obtained and is minimally elevated These results were discussed with patient I have a suspicion that these are secondary to new statin use, this was discussed with the patient, advised the patient she discontinue statin and follow up with his primary care. Patient is agreeable to this. - Lab Data Result diagrams: 11/05/19 03:48 11/05/19 03:48 Lab Results 11/05/19 11/05/19 11/05/19 Range/Units 03:48 03:48 04:30 WBC 7.0 (3.8-10.6) k/uL RBC 4.93 (4.30-5.90) m/uL Hgb 15.8 (13.0-17.5) gm/dL Hct 46.3 (39.0-53.0) % MCV 93.8 (80.0-100.0) fL MCH 32.1 (25.0-35.0) pg MCHC 34.2 (31.0-37.0) g/dL RDW 12.2 (11.5-15.5) % Plt Count 355 (150-450) k/uL Neutrophils % 61 % Lymphocytes % 29 % Monocytes % 5 % Eosinophils % 2 % Basophils % 1 % Neutrophils # 4.3 (1.3-7.7) k/uL Lymphocytes # 2.0 (1.0-4.8) k/uL Monocytes # 0.4 (0-1.0) k/uL Eosinophils # 0.1 (0-0.7) k/uL Basophils # 0.1 (0-0.2) k/uL Sodium 138 (137-145) mmol/L Potassium 4.2 (3.5-5.1) mmol/L Chloride 101 (98-107) mmol/L Carbon Dioxide 27 (22-30) mmol/L Anion Gap 10 mmol/L BUN 13 (9-20) mg/dL Creatinine 0.77 (0.66-1.25) mg/dL Est GFR (CKD-EPI)AfAm >90 (>60 ml/min/1.73 sqM) Est GFR (CKD-EPI)NonAf >90 (>60 ml/min/1.73 sqM) Glucose 112 H (74-99) mg/dL Calcium 9.2 (8.4-10.2) mg/dL Magnesium 2.1 (1.6-2.3) mg/dL Total Bilirubin 0.8 (0.2-1.3) mg/dL AST 275 H (17-59) U/L ALT 106 H (4-49) U/L Alkaline Phosphatase 89 (38-126) U/L Ammonia 33 H (<30) umol/L Creatine Kinase 27 L (55-170) U/L Total Protein 6.9 (6.3-8.2) g/dL Albumin 4.4 (3.5-5.0) g/dL - EKG Data -: EKG Interpreted by Me EKG Comments: EKG was obtained at 3:30 AM, rate is 79 rhythm is sinus. T-wave inversions laterally no acute ST elevations. When this EKG was compared to previous from precatheterization the T-wave inversions are new. A post catheterization EKG was not available. Disposition Clinical Impression: Transaminitis, Adverse reaction to statin medication Disposition: HOME SELF-CARE Condition: Stable Additional Instructions: Discontinue Lipitor Call Dr Tomlin today for follow up Is patient prescribed a controlled substance at d/c from ED?: No Referrals: Kiet Tomlin Jr, [Primary Care Provider] - 1-2 days
[2019-11-05] MEDS ORDERED: ONDANSETRON 4 MG/2 ML VIAL IVP STA (05:09)
[2019-11-05 10:36] VITALS: BP 113/66; PULSE 76; RESP 18; TEMP 98.5
== END 2019-11-05 05:58 | disposition home or self-care (01) ==
LOC: EC 03:20
DX: R74.0 Nonspecific elevation of levels of transaminase and lactic acid dehydrogenase [LDH] (principal); T46.6X5A Adverse effect of antihyperlipidemic and antiarteriosclerotic drugs, initial encounter; E72.20 Disorder of urea cycle metabolism, unspecified; R41.0 Disorientation, unspecified; R53.1 Weakness; R20.2 Paresthesia of skin; F32.9 Major depressive disorder, single episode, unspecified; Z85.818 Personal history of malignant neoplasm of other sites of lip, oral cavity, and pharynx; Z79.899 Other long term (current) drug therapy
CPT/HCPCS: 36415; 93005; 80053; 82140; 82550; 83735; 85025; 99285; 96374; J2405

== ENCOUNTER 2019-11-08 20:34 | Observation (INO) | payer OTHER ==
--- NOTE | 2019-11-08 21:14 | ED ---
General Adult HPI - General Chief complaint: Syncope Stated complaint: Chest pain Time Seen by Provider: 11/08/19 20:44 Source: patient Mode of arrival: ambulatory - History of Present Illness Initial comments: Dictation was produced using [employer] dictation software. please excuse any grammatical, word or spelling errors. This patient was cared for during a federal and state declared state of emergency secondary to Covid 19 Chief Complaint: 34-year-old male presents today with syncope. History of Present Illness: 34-year-old male who presents today with syncope. Patient was recently admitted discharged from the hospital. He was admitted for a similar complaint. Patient states he had been admitted for cardiac issue. At that time he had stress test, echocardiogram and cardiac catheterization. Cardiac cath showed normal coronary angiogram and nonischemic cardiomyopathy. Patient was started on a lot of blood pressure medications. He spoke with c ardiology office over the phone in order to schedule an appointment. He reported to them that he's been having syncopal episodes that have been persistent. Patient was then advised to come to the emergency department. Patient states he feels well at the moment. Echocardiogram shows mildly impair ed ejection fraction with an EF of 40-45%. Patient denies any chest pain at this time. The ROS documented in this emergency department record has been reviewed and confirmed by me. Those systems with pertinent positive or negative responses have been documented in the HPI. All other systems are other negative and/or noncontributory. PHYSICAL EXAM: General Impression: Alert and oriented x3, not in acute distress HEENT: Normocephalic atraumatic, extra-ocular movements intact, pupils equal and reactive to light bilaterally, mucous membranes moist. Cardiovascular: Heart regular rate and rhythm Chest: Able to complete full sentences, no retractions, no tachypnea Abdomen: abdomen soft, non-tender, non-distended, no organomegaly Musculoskeletal: Pulses present and equal in all extremities, no peripheral edema Motor: no focal deficits noted Neurological: CN II-XII grossly intact, no focal motor or sensory deficits noted Skin: Intact with no visualized rashes Psych: Normal affect and mood ED course: 34-year-old male presents with episodes of syncope. Patient had extensive cardiac workup on admission in the hospital approximately 2 weeks ago. Vital signs upon arrival are within acceptable limits. EKG shows no obvious cause of syncope. Laboratory evaluation obtained. CBC unremarkable. Metabolic panel is negative. Cardiac enzyme is negative. Serum alcohol is 202. Patient states he drove to the emergency department. Patient does not have a ride. Discussed patient case Dr. Tomlin who is willing to accept patients care. Patient is agreeable to being admitted overnight. I do not feel safe discharging the patient is current condition given that he drove to the emergency department and has significantly elevated alcohol level. 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 Patient is agreeable to disposition. EKG interpretation: Ventricular rate 79, normal sinus rhythm, NV interval 152, QRS 90, QTC 424. No NV prolongation, no QTC prolongation, no ST or T-wave changes noted. EKG compared to 11/05/2019 showing no changes. No needlelike Q waves in precordial leads, no prolonged QT, no delta wave, no Brugada waves. Overall, this EKG is unremarkable - Related Data Home Medications Medication Instructions Recorded Confirmed Escitalopram [Lexapro] 10 mg PO DAILY 10/27/19 11/08/19 Previous Rx's Medication Instructions Recorded Bisoprolol-Hctz 10-6.25 mg [Ziac 1 tab PO DAILY #30 tablet 10/29/19 10-6.25 MG] Lisinopril [Zestril] 5 mg PO BID #60 tablet 10/29/19 Spironolactone [Aldactone] 25 mg PO DAILY #30 tablet 10/29/19 Allergies Allergy/AdvReac Type Severity Reaction Status Date / Time No Known Allergies Allergy Verified 11/08/19 21:48 Review of Systems ROS Statement: Those systems with pertinent positive or pertinent negative responses have been documented in the HPI. ROS Other: All systems not noted in ROS Statement are negative. Past Medical History Past Medical History: Hypertension Additional Past Medical History / Comment(s): Hypertension, currently being treated History of Any Multi-Drug Resistant Organisms: None Reported Past Surgical History: Adenoidectomy, Appendectomy, Ear Surgery, Orthopedic Surgery, Tonsillectomy Additional Past Surgical History / Comment(s): Colonoscopy, ORIF L ankle. ear tubes as a child. Past Anesthesia/Blood Transfusion Reactions: No Reported Reaction Past Psychological History: Anxiety, Depression Smoking Status: Never smoker Past Alcohol Use History: Occasional Past Drug Use History: Marijuana - Past Family History Father Family Medical History: Diabetes Mellitus, Hyperlipidemia, Hypertension Additional Family Medical History / Comment(s): gout Mother Family Medical History: Hypertension Course Vital Signs 11/08/19 11/08/19 11/08/19 20:36 21:10 22:00 Temperature 98.1 F Pulse Rate 88 75 Pulse Rate [ 82 Bilateral] Respiratory 18 18 Rate Blood Pressure 120/86 112/65 O2 Sat by Pulse 99 95 Oximetry Medical Decision Making - Lab Data Result diagrams: 11/08/19 21:27 11/08/19 21:27 Lab Results 11/08/19 11/08/19 11/08/19 Range/Units 21:27 21:27 21:27 WBC 8.3 (3.8-10.6) k/uL RBC 4.68 (4.30-5.90) m/uL Hgb 15.1 (13.0-17.5) gm/dL Hct 44.2 (39.0-53.0) % MCV 94.3 (80.0-100.0) fL MCH 32.1 (25.0-35.0) pg MCHC 34.1 (31.0-37.0) g/dL RDW 12.2 (11.5-15.5) % Plt Count 325 (150-450) k/uL Neutrophils % 60 % Lymphocytes % 30 % Monocytes % 6 % Eosinophils % 2 % Basophils % 1 % Neutrophils # 4.9 (1.3-7.7) k/uL Lymphocytes # 2.4 (1.0-4.8) k/uL Monocytes # 0.5 (0-1.0) k/uL Eosinophils # 0.1 (0-0.7) k/uL Basophils # 0.1 (0-0.2) k/uL Sodium 136 L (137-145) mmol/L Potassium 4.6 (3.5-5.1) mmol/L Chloride 100 (98-107) mmol/L Carbon Dioxide 26 (22-30) mmol/L Anion Gap 10 mmol/L BUN 13 (9-20) mg/dL Creatinine 0.84 (0.66-1.25) mg/dL Est GFR (CKD-EPI)AfAm >90 (>60 ml/min/1.73 sqM) Est GFR (CKD-EPI)NonAf >90 (>60 ml/min/1.73 sqM) Glucose 102 H (74-99) mg/dL Calcium 9.3 (8.4-10.2) mg/dL Ionized Calcium Jose 4.9 (4.5-5.3) mg/dL Magnesium 2.2 (1.6-2.3) mg/dL Troponin I <0.012 (0.000-0.034) ng/mL NT-Pro-B Natriuret Pep pg/mL Serum Alcohol 202 H* mg/dL 11/08/19 Range/Units 21:27 WBC (3.8-10.6) k/uL RBC (4.30-5.90) m/uL Hgb (13.0-17.5) gm/dL Hct (39.0-53.0) % MCV (80.0-100.0) fL MCH (25.0-35.0) pg MCHC (31.0-37.0) g/dL RDW (11.5-15.5) % Plt Count (150-450) k/uL Neutrophils % % Lymphocytes % % Monocytes % % Eosinophils % % Basophils % % Neutrophils # (1.3-7.7) k/uL Lymphocytes # (1.0-4.8) k/uL Monocytes # (0-1.0) k/uL Eosinophils # (0-0.7) k/uL Basophils # (0-0.2) k/uL Sodium (137-145) mmol/L Potassium (3.5-5.1) mmol/L Chloride (98-107) mmol/L Carbon Dioxide (22-30) mmol/L Anion Gap mmol/L BUN (9-20) mg/dL Creatinine (0.66-1.25) mg/dL Est GFR (CKD-EPI)AfAm (>60 ml/min/1.73 sqM) Est GFR (CKD-EPI)NonAf (>60 ml/min/1.73 sqM) Glucose (74-99) mg/dL Calcium (8.4-10.2) mg/dL Ionized Calcium Jose (4.5-5.3) mg/dL Magnesium (1.6-2.3) mg/dL Troponin I (0.000-0.034) ng/mL NT-Pro-B Natriuret Pep 39 pg/mL Serum Alcohol mg/dL Disposition Clinical Impression: Syncope, Alcohol intoxication Disposition: ADMITTED IP TO THIS HOSP Condition: Fair Referrals: Kiet Tomlin Jr, [Primary Care Provider] - 1-2 days Decision Time: 22:31
[2019-11-08 21:35] LABS: Basophils # (A) 0.1 k/uL (0-0.2); Basophils % (A) 1 %; Eosinophils # (A) 0.1 k/uL (0-0.7); Eosinophils % (A) 2 %; HCT 44.2 % (39.0-53.0); HGB 15.1 gm/dL (13.0-17.5); Lymphocytes # (A) 2.4 k/uL (1.0-4.8); Lymphocytes % (A) 30 %; MCH 32.1 pg (25.0-35.0); MCHC 34.1 g/dL (31.0-37.0); MCV 94.3 fL (80.0-100.0); Mean Platelet Volume 7.7; Monocytes # (A) 0.5 k/uL (0-1.0); Monocytes % (A) 6 %; Neutrophils # (A) 4.9 k/uL (1.3-7.7); Neutrophils % (A) 60 %; Platelet Count 325 k/uL (150-450); RBC 4.68 m/uL (4.30-5.90); RDW 12.2 % (11.5-15.5); WBC 8.3 k/uL (3.8-10.6)
[2019-11-08 21:38] LABS: Ionized Calcium 4.9 mg/dL (4.5-5.3)
[2019-11-08 21:44] LABS: African American GFR (CKD) >90 (>60 ml/min/1.73 sqM); Anion Gap 10 mmol/L; Blood Urea Nitrogen 13 mg/dL (9-20); Calcium 9.3 mg/dL (8.4-10.2); Carbon Dioxide 26 mmol/L (22-30); Chloride 100 mmol/L (98-107); Glucose 102 mg/dL (74-99); Magnesium 2.2 mg/dL (1.6-2.3); Non-African American GFR(CKD) >90 (>60 ml/min/1.73 sqM); Potassium 4.6 mmol/L (3.5-5.1); Sodium 136 mmol/L (137-145)
--- NOTE | 2019-11-08 21:44 | XR ---
EXAMINATION TYPE: XR chest 1V portable DATE OF EXAM: 11/08/2019 COMPARISON: Chest x-ray 12 days ago. HISTORY: Syncope and weakness. TECHNIQUE: Single frontal view of the chest is obtained. FINDINGS: There is no focal air space opacity, pleural effusion, or pneumothorax seen. The cardiac silhouette size remains within normal limits. The osseous structures are intact. IMPRESSION: No acute process. No significant change from prior.
[2019-11-08 21:52] LABS: Alcohol 202 mg/dL
[2019-11-08] MEDS ORDERED: NALOXONE 0.4 MG/ML 1 ML VIAL IV PRN (22:31)
[2019-11-09] MEDS ORDERED: THIAMINE 100 MG/ML 2 ML VIAL IM STA (08:55)
[2019-11-09] MEDS ORDERED: LORazepam 2 MG/ML INJ IV PRN ×3 (08:55)
[2019-11-09 09:08] VITALS: PULSE 68
[2019-11-09] MEDS ORDERED: ONDANSETRON 4 MG/2 ML VIAL IVP PRN (09:43)
[2019-11-09] MEDS ORDERED: SPIRONOLACTONE 25 MG TAB PO SCH (09:45)
[2019-11-09] MEDS ORDERED: BISOPROLOL-HCTZ 10-6.25 MG 1 EACH TAB PO SCH (09:45)
[2019-11-09] MEDS ORDERED: ESCITALOPRAM 10 MG TAB PO SCH (09:45)
[2019-11-09] MEDS ORDERED: LISINOPRIL 5 MG TAB PO SCH (09:45)
[2019-11-09 11:58] VITALS: BP 157/88; RESP 16; TEMP 98.2
[2019-11-09] MEDS ORDERED: FOLIC ACID 1 MG TAB PO SCH (13:45)
[2019-11-09] MEDS ORDERED: MULTIVITAMINS, THERA 1 EACH TAB PO SCH (14:00)
--- NOTE | 2019-11-09 14:55 | P.HPIM ---
History of Present Illness H&P Date: 11/09/19 Chief Complaint: Syncope This is a 34-year-old gentleman with history of hypertension, depression, polysubstance abuse , family history of CAD presented to the ER with complaints of syncope, recent cardiac cath reporting normal coronary angiogram and nonischemic cardiomyopathy, EF 40-45%, and multiple other medical issues. On prior admission patient had been noncompliant with medical regimen, adjusted as per cardiology. Alcohol level on admission 202, reports daily alcohol use. EKG reporting normal sinus rhythm. Troponin negative 1. Denies any chest pain, palpitations or shortness of breath.CBC, chemistry unremarkable.VSS. Review of Systems ROS Statement: Those systems with pertinent positive or pertinent negative responses have been documented in the HPI. ROS Other: All systems not noted in ROS Statement are negative. Past Medical History Past Medical History: Hypertension Additional Past Medical History / Comment(s): Hypertension, currently being treated History of Any Multi-Drug Resistant Organisms: None Reported Past Surgical History: Adenoidectomy, Appendectomy, Ear Surgery, Orthopedic Surgery, Tonsillectomy Additional Past Surgical History / Comment(s): Colonoscopy, ORIF L ankle. ear tubes as a child. Past Anesthesia/Blood Transfusion Reactions: No Reported Reaction Past Psychological History: Anxiety, Depression Smoking Status: Never smoker Past Alcohol Use History: Occasional Additional Past Alcohol Use History / Comment(s): Pt states he drinks a couple beers normally on night-. Past Drug Use History: Marijuana Additional Drug Use History / Comment(s): Pt states he rarely smokes marijuana. - Past Family History Father Family Medical History: Diabetes Mellitus, Hyperlipidemia, Hypertension Additional Family Medical History / Comment(s): gout Mother Family Medical History: Hypertension Medications and Allergies Home Medications Medication Instructions Recorded Confirmed Type Escitalopram [Lexapro] 10 mg PO DAILY 10/27/19 11/08/19 History Bisoprolol-Hctz 10-6.25 mg [Ziac 1 tab PO DAILY #30 tablet 10/29/19 11/08/19 Rx 10-6.25 MG] Lisinopril [Zestril] 5 mg PO BID #60 tablet 10/29/19 11/08/19 Rx Spironolactone [Aldactone] 25 mg PO DAILY #30 tablet 10/29/19 11/08/19 Rx Folic Acid 1 mg PO DAILY #30 tablet 11/09/19 Rx LORazepam [Ativan] 0.5 mg PO TID PRN 3 Days #9 tab 11/09/19 Rx Multivitamins, Thera [Multivitamin 1 tab PO DAILY #30 tablet 11/09/19 Rx (formulary)] Thiamine [Vitamin B-1] 100 mg PO DAILY #30 tab 11/09/19 Rx Allergies Allergy/AdvReac Type Severity Reaction Status Date / Time No Known Allergies Allergy Verified 11/08/19 21:48 Physical Exam Vitals: Vital Signs Temp Pulse Pulse Resp BP BP Pulse Ox 11/09/19 07:38 98.3 F 74 12 139/94 100 11/09/19 04:50 98.0 F 16 109/72 98 11/09/19 04:00 76 16 11/08/19 23:55 98.0 F 76 16 119/74 95 11/08/19 22:00 75 18 112/65 95 11/08/19 21:10 82 11/08/19 20:36 98.1 F 88 18 120/86 99 Intake and Output 11/08/19 11/09/19 11/09/19 22:59 06:59 14:59 Output Total 400 Balance -400 Output: Urine 400 Other: # Voids 1 1 Weight 86.183 kg 86.183 kg PHYSICAL EXAM: VITAL SIGNS: [As above] GENERAL: Sitting up in bed, no acute distress HEENT: Conjunctivae normal. eyes normal. NECK: No JVD. No thyroid enlargement. No LNs CARDIOVASCULAR: S1, S2 regular. No murmur RESPIRATION: Breath sounds diminished in the bases. No rhonchi or crackles. No bronchial breathing. ABDOMEN: Soft, nontender . No guarding. no masses palpable. No ascites, No hepatosplenomegaly.Bowel sounds heard. LEGS: No edema. no swelling PSYCHIATRY: Alert and oriented X3, mood and affect normal. NERVOUS SYSTEM: Cranial N 2-12 grossly normal. Moves all 4 limbs. No focal deficits. Strength and sensation grossly intact.. Skin: no lesions, no rash Lymphatic system: No LN neck axilla Results CBC & Chem 7: 11/08/19 21:27 11/08/19 21:27 Labs: Abnormal Lab Results - Last 24 Hours (Table) 11/08/19 Range/Units 21:27 Sodium 136 L (137-145) mmol/L Glucose 102 H (74-99) mg/dL Serum Alcohol 202 H* mg/dL Thrombosis Risk Factor Assmnt - Choose All That Apply Any of the Below Risk Factors Present?: No Other Risk Factors: No Thrombosis Risk Factor Assessment Level: Very Low Risk Assessment and Plan Assessment: Syncope, suspected alcoholic cardiomyopathy Alcohol intoxication in a patient with history of Alcohol abuse, dependence. Reports daily consumption with alcohol level of 202 on admission Recent impaired stress echo followed by recent cardiac catheterization reporting normal coronary angiogram, nonischemic cardiomyopathy, EF 40-45% Hypertension, history of noncompliant with medication Depression ADD Triglyceridemia Plan: Continue on current medication regime ,monitoring and synthetic treatment. Maintained on CIWA protocol, thiamine, multivitamins and folic acid with significant clinical improvement. Alcohol cessation reinforced. Discussed rehab options, patient recently started new job, increased to follow with Dr. Tomlin tomorrow and weekly. [facility] with [facility]. Changing of Antidepressant outpatient in clinic secondary to QT prolongation properties. Discharge on event monitor. Significant clinical improvement. Patient will be discharged home today in stable condition with guarded prognosis. The impression and plan of care has been dictated as directed. : I performed a history and examination of this patient, discussed the same with the dictator. I agree with the dictator's note ,documented as a scribe. Any additional findings or plans will be noted.
[2019-11-09] MEDS ORDERED: THIAMINE 100 MG TAB PO SCH (17:30)
== END 2019-11-09 14:40 | disposition home or self-care (01) ==
LOC: EC 20:34 → 1SOBS 22:31
PROVIDERS: ADMIT Family Medicine; ATTEND Family Medicine
DX: R55 Syncope and collapse (principal); F10.229 Alcohol dependence with intoxication, unspecified; I42.8 Other cardiomyopathies; I10 Essential (primary) hypertension; Z87.898 Personal history of other specified conditions; F32.9 Major depressive disorder, single episode, unspecified; F98.8 Other specified behavioral and emotional disorders with onset usually occurring in childhood and adolescence; E75.5 Other lipid storage disorders; F41.9 Anxiety disorder, unspecified; Y90.7 Blood alcohol level of 200-239 mg/100 ml; Z03.818 Encounter for observation for suspected exposure to other biological agents ruled out; Z79.899 Other long term (current) drug therapy; Z90.89 Acquired absence of other organs; Z90.49 Acquired absence of other specified parts of digestive tract; Z98.890 Other specified postprocedural states; Z87.81 Personal history of (healed) traumatic fracture; Z86.69 Personal history of other diseases of the nervous system and sense organs; Z83.3 Family history of diabetes mellitus; Z83.438 Family history of other disorder of lipoprotein metabolism and other lipidemia; Z82.49 Family history of ischemic heart disease and other diseases of the circulatory system; Z82.69 Family history of other diseases of the musculoskeletal system and connective tissue
CPT/HCPCS: 96372; 96374; 99285; 36415; 93005; 93270; 83880; 80048; 82330; 83735; 84484; 85025; 71045; G0378 ×2; G0480; U0003; J3411; J2405; 80320

== ENCOUNTER 2019-11-23 15:01 | Emergency (ER) | payer OTHER ==
[2019-11-23 15:38] VITALS: TEMP 98.4
--- NOTE | 2019-11-23 16:34 | ED ---
General Adult HPI - General Chief complaint: Psychiatric Symptoms Stated complaint: etoh Time Seen by Provider: 11/23/19 15:57 Source: patient, RN notes reviewed Mode of arrival: ambulatory Limitations: no limitations - History of Present Illness Initial comments: Patient is a 34-year-old male presenting to the emergency Department with complaints of alcohol problems. Patient states he does drink about a pint a day. Patient states he came the hospital thinking it might make him feel better. Patient denies suicidal thoughts despite being asked several times. No homicidal thoughts. No new physical complaints. Patient states he has considered rehab however he is nervous if he went there that he may lose his job. Patient states he does have thoughts as would like to discontinue alcohol however he wants to try this as an outpatient. Patient states she no longer wants to be in the emergency department and wants to leave. - Related Data Home Medications Medication Instructions Recorded Confirmed Escitalopram [Lexapro] 10 mg PO DAILY 10/27/19 11/08/19 Previous Rx's Medication Instructions Recorded Bisoprolol-Hctz 10-6.25 mg [Ziac 1 tab PO DAILY #30 tablet 10/29/19 10-6.25 MG] Spironolactone [Aldactone] 25 mg PO DAILY #30 tablet 10/29/19 lisinopriL [Zestril] 5 mg PO BID #60 tablet 10/29/19 Folic Acid 1 mg PO DAILY #30 tablet 11/09/19 LORazepam [Ativan] 0.5 mg PO TID PRN 3 Days #9 tab 11/09/19 Multivitamins, Thera [Multivitamin 1 tab PO DAILY #30 tablet 11/09/19 (formulary)] Thiamine [Vitamin B-1] 100 mg PO DAILY #30 tab 11/09/19 Allergies Allergy/AdvReac Type Severity Reaction Status Date / Time No Known Allergies Allergy Verified 11/23/19 15:38 Review of Systems ROS Statement: Those systems with pertinent positive or pertinent negative responses have been documented in the HPI. ROS Other: All systems not noted in ROS Statement are negative. Constitutional: Denies: fever Eyes: Denies: eye pain ENT: Denies: ear pain Respiratory: Denies: dyspnea Cardiovascular: Reports: palpitations (Chronic. Patient does have an appointment today with his doctor for this and is on heart monitor.) Endocrine: Denies: fatigue Gastrointestinal: Denies: abdominal pain Genitourinary: Denies: dysuria Musculoskeletal: Denies: back pain Skin: Denies: rash Neurological: Denies: weakness Past Medical History Past Medical History: Hypertension Additional Past Medical History / Comment(s): Hypertension, currently being treated History of Any Multi-Drug Resistant Organisms: None Reported Past Surgical History: Adenoidectomy, Appendectomy, Ear Surgery, Orthopedic Surgery, Tonsillectomy Additional Past Surgical History / Comment(s): Colonoscopy, ORIF L ankle. ear tubes as a child. Past Anesthesia/Blood Transfusion Reactions: No Reported Reaction Past Psychological History: Anxiety, Depression Smoking Status: Never smoker Past Alcohol Use History: Occasional Past Drug Use History: Marijuana - Past Family History Father Family Medical History: Diabetes Mellitus, Hyperlipidemia, Hypertension Additional Family Medical History / Comment(s): gout Mother Family Medical History: Hypertension General Exam Limitations: no limitations General appearance: alert, in no apparent distress Head exam: Present: normocephalic Eye exam: Present: normal appearance, PERRL, EOMI ENT exam: Present: normal oropharynx Neck exam: Present: normal inspection Respiratory exam: Present: normal lung sounds bilaterally Cardiovascular Exam: Present: regular rate, normal rhythm GI/Abdominal exam: Present: soft. Absent: tenderness Extremities exam: Present: normal inspection Neurological exam: Present: alert, oriented X3, CN II-XII intact, normal gait. Absent: abnormal gait, motor sensory deficit Expanded Neurological exam: Absent: ataxia Patient oriented to: Present: person, place, time Speech: Present: fluid speech Eye Response: (4) open spontaneously Motor Response: (6) obeys commands Verbal Response: (5) oriented Psychiatric exam: Present: normal affect, normal mood. Absent: suicidal ideation Skin exam: Present: normal color Course Vital Signs 11/23/19 15:34 Temperature 98.4 F Pulse Rate 116 H Respiratory 20 Rate Blood Pressure 131/90 O2 Sat by Pulse 96 Oximetry Medical Decision Making - Medical Decision Making Patient refuses any further care or evaluation and refuses to stay. Patient will leave AGAINST MEDICAL ADVICE. Patient is alert and oriented 3 and does demonstrate steady gait. Disposition Clinical Impression: Alcohol intoxication, Alcohol abuse Disposition: Left Against Medical Advice Instructions (If sedation given, give patient instructions): Abuse of Alcohol (ED), Alcohol Intoxication (ED) Additional Instructions: Discontinue alcohol use. Please follow-up with primary care physician in the next day or 2 for recheck. Please consider AA or [place] are similar, list provided. Is patient prescribed a controlled substance at d/c from ED?: No Referrals: Kiet Tomlin Jr, [Primary Care Provider] - 1-2 days Time of Disposition: 16:34
[2019-11-23 17:09] VITALS: BP 121/90; PULSE 66; RESP 18
== END 2019-11-23 17:07 | disposition left against medical advice (07) ==
LOC: EC 15:01
DX: F10.129 Alcohol abuse with intoxication, unspecified (principal); I10 Essential (primary) hypertension; F41.9 Anxiety disorder, unspecified; F32.9 Major depressive disorder, single episode, unspecified; Z79.899 Other long term (current) drug therapy
CPT/HCPCS: 82075; 99284

== ENCOUNTER 2020-01-03 09:55 | Emergency (ER) | payer OTHER ==
[2020-01-03] MEDS ORDERED: SODIUM CHLORIDE 0.9% 500 ML 500 ML IV STA (10:22)
[2020-01-03] MEDS ORDERED: LORazepam 1 MG TAB PO STA (10:23)
[2020-01-03] MEDS: ASPIRIN 81 MG PO STA ×2 (10:40→10:50)
--- NOTE | 2020-01-03 10:43 | ED ---
General Adult HPI - General Chief complaint: Chest Pain Stated complaint: migraine/lightheaded/nausea Time Seen by Provider: 01/03/20 10:10 Source: patient, RN notes reviewed, old records reviewed Mode of arrival: ambulatory Limitations: no limitations - History of Present Illness Initial comments: 35-year-old male patient presents to ED for evaluation of multiple symptoms. Patient reports that for the last week and a half or so he has been having some waxing and waning chest tightness lobe of shortness of breath. Patient reports he has been coughing. Patient reports that he had mild headache which resolved has been having some somewhat fevers and chills like symptoms. Patient presents for further evaluation. Patient does report that he has a reported familial cardiac history is had extensive cardiac workup in October where he underwent stress echo her to catheterization. He is found to have a reduced ejection fraction between 40 and 45%. However no coronary artery disease was detected during cardiac catheterization. Patient denies any current chest pain or shortness of breath. Denies any other acute complaints. Systemic: Pt denies fatigue, fever/chills, rash. Pt denies weakness, night sweats, weight loss. Neuro: Pt denies headache, visual disturbances, syncope or pre-syncope. HEENT: Pt denies ocular discharge or irritation, otalgia, rhinorrhea, pharyngitis or notable lymphadenopathy. Cardiopulmonary: Pt denies chest pain, SOB, heart palpitations, dyspnea on exertion. Abdominal/GI: Pt denies abdominal pain, n/v/d. : Pt denies dysuria, burning w/ urination, frequency/urgency. Denies new onset urinary or bowel incontinence. MSK: Pt denies myalgia, loss of strength or function in extremities. Neuro: Pt denies new onset weakness, paresthesias. - Related Data Home Medications Medication Instructions Recorded Confirmed Escitalopram [Lexapro] 10 mg PO DAILY 10/27/19 11/08/19 Previous Rx's Medication Instructions Recorded Bisoprolol-Hctz 10-6.25 mg [Ziac 1 tab PO DAILY #30 tablet 10/29/19 10-6.25 MG] Spironolactone [Aldactone] 25 mg PO DAILY #30 tablet 10/29/19 lisinopriL [Zestril] 5 mg PO BID #60 tablet 10/29/19 Folic Acid 1 mg PO DAILY #30 tablet 11/09/19 LORazepam [Ativan] 0.5 mg PO TID PRN 3 Days #9 tab 11/09/19 Multivitamins, Thera [Multivitamin 1 tab PO DAILY #30 tablet 11/09/19 (formulary)] Thiamine [Vitamin B-1] 100 mg PO DAILY #30 tab 11/09/19 Azithromycin [Zithromax Z-pack] 0 mg PO DIRECTED #6 tab 01/03/20 Allergies Allergy/AdvReac Type Severity Reaction Status Date / Time No Known Allergies Allergy Verified 01/03/20 10:02 Review of Systems ROS Statement: Those systems with pertinent positive or pertinent negative responses have been documented in the HPI. ROS Other: All systems not noted in ROS Statement are negative. Past Medical History Past Medical History: Hypertension Additional Past Medical History / Comment(s): Hypertension, currently being treated History of Any Multi-Drug Resistant Organisms: None Reported Past Surgical History: Adenoidectomy, Appendectomy, Ear Surgery, Heart Catheterization, Orthopedic Surgery, Tonsillectomy Additional Past Surgical History / Comment(s): Colonoscopy, ORIF L ankle. ear tubes as a child. Past Anesthesia/Blood Transfusion Reactions: No Reported Reaction Past Psychological History: Anxiety, Depression Smoking Status: Never smoker Past Alcohol Use History: Occasional Past Drug Use History: Marijuana - Past Family History Father Family Medical History: Diabetes Mellitus, Hyperlipidemia, Hypertension Additional Family Medical History / Comment(s): gout Mother Family Medical History: Hypertension General Exam - General Exam Comments Initial Comments: Constitutional: NAD, AOX3, Pt has pleasant affect. HEENT: NC/AT, trachea midline, neck supple, no lymphadenopathy. External ears appear normal, without discharge. Mucous membranes moist. Eyes PERRLA, EOM intact. There is no scleral icterus. No pallor noted. Cardiopulmonary: RRR, no murmurs, rubs or gallops, no JVD noted. Lungs CTAB in anterior and posterior brooke. No peripheral edema. Abdominal exam: Abdomen soft and non-distended. Abdomen non-tender to palpation in all 4 quadrants. Bowel sounds active in LLQ. No hepatosplenomegaly. No ecchymosis Neuro: CN II-XII grossly intact. No nuchal rigidity. No raccon eyes, no walsh sign, no hemotympanum. No cervical spinal tenderness. MSK: No posterior calf tenderness bilaterally, homans sign negative bilaterally. Posterior tibialis and radial pulse +2 bilaterally. Sensation intact in upper and lower extremities. Full active ROM in upper and lower extremities, 5/5 str egnth. Limitations: no limitations Course Vital Signs 01/03/20 01/03/20 01/03/20 09:58 12:00 13:55 Temperature 98.4 F 99.1 F Pulse Rate 84 82 84 Respiratory 18 18 18 Rate Blood Pressure 138/83 124/81 131/79 O2 Sat by Pulse 96 94 L 95 Oximetry Medical Decision Making - Medical Decision Making 35-year-old male patient with CVG complaining about a week and a half cough congestion waxing and waning fever/chills. Headache which is since resolved. Patient vital signs are stable, afebrile. Physical exam didn't display acute pathology. Chest x-ray and CTA displayed groundglass opacities throughout the lungs. Laboratory investigations are significant for increased inflammatory markers. EKG is nonischemic. Patient forced that he feels fine right now laughing any shortness breath or any symptoms at all. We did attempt to discuss case to Dr. Blank patient's primary care provider were unable to get contact with them. Patient clinical presentation is consistent with acute covid-19 infection. Patient will be discharged with follow-up with primary care provider tomorrow with very close follow-up and strict return precautions. Will be prescribed azithromycin and albuterol inhaler. Case discussed in depth with Dr. Wang. - Lab Data Result diagrams: 01/03/20 10:29 01/03/20 10:29 Lab Results 01/03/20 01/03/20 01/03/20 Range/Units 10:29 10:29 10:29 WBC 11.0 H (3.8-10.6) k/uL RBC 3.41 L (4.30-5.90) m/uL Hgb 11.0 L D (13.0-17.5) gm/dL Hct 33.3 L (39.0-53.0) % MCV 97.5 (80.0-100.0) fL MCH 32.1 (25.0-35.0) pg MCHC 32.9 (31.0-37.0) g/dL RDW 13.1 (11.5-15.5) % Plt Count 402 (150-450) k/uL Neutrophils % 92 % Lymphocytes % 5 % Monocytes % 3 % Eosinophils % 0 % Basophils % 0 % Neutrophils # 10.1 H (1.3-7.7) k/uL Lymphocytes # 0.5 L (1.0-4.8) k/uL Monocytes # 0.3 (0-1.0) k/uL Eosinophils # 0.0 (0-0.7) k/uL Basophils # 0.0 (0-0.2) k/uL PT (9.0-12.0) sec INR (<1.2) APTT (22.0-30.0) sec D-Dimer 0.53 (<0.60) mg/L FEU Sodium 135 L (137-145) mmol/L Potassium 3.7 (3.5-5.1) mmol/L Chloride 95 L (98-107) mmol/L Carbon Dioxide 28 (22-30) mmol/L Anion Gap 12 mmol/L BUN 17 (9-20) mg/dL Creatinine 0.79 (0.66-1.25) mg/dL Est GFR (CKD-EPI)AfAm >90 (>60 ml/min/1.73 sqM) Est GFR (CKD-EPI)NonAf >90 (>60 ml/min/1.73 sqM) Glucose 123 H (74-99) mg/dL Plasma Lactic Acid Viktor (0.7-2.0) mmol/L Calcium 8.8 (8.4-10.2) mg/dL Magnesium 2.8 H (1.6-2.3) mg/dL Total Bilirubin 1.1 (0.2-1.3) mg/dL AST 59 (17-59) U/L ALT 36 (4-49) U/L Alkaline Phosphatase 236 H (38-126) U/L Lactate Dehydrogenase (313-618) U/L Troponin I (0.000-0.034) ng/mL C-Reactive Protein (<10.0) mg/L NT-Pro-B Natriuret Pep pg/mL Total Protein 6.7 (6.3-8.2) g/dL Albumin 3.6 (3.5-5.0) g/dL Urine Color Urine Appearance (Clear) Urine pH (5.0-8.0) Ur Specific [place] (1.001-1.035) Urine Protein (Negative) Urine Glucose (UA) (Negative) Urine Ketones (Negative) Urine Blood (Negative) Urine Nitrite (Negative) Urine Bilirubin (Negative) Urine Urobilinogen (<2.0) mg/dL Ur Leukocyte Esterase (Negative) Urine RBC (0-5) /hpf Urine WBC (0-5) /hpf Hyaline Casts (0-2) /lpf Urine Mucus (None) /hpf Urine Opiates Screen (NotDetected) Ur Oxycodone Screen (NotDetected) Urine Methadone Screen (NotDetected) Ur Propoxyphene Screen (NotDetected) Ur Barbiturates Screen (NotDetected) U Tricyclic Antidepress (NotDetected) Ur Phencyclidine Scrn (NotDetected) Ur Amphetamines Screen (NotDetected) U Methamphetamines Scrn (NotDetected) U Benzodiazepines Scrn (NotDetected) Urine Cocaine Screen (NotDetected) U Marijuana (THC) Screen (NotDetected) 01/03/20 01/03/20 01/03/20 Range/Units 10:29 10:29 10:29 WBC (3.8-10.6) k/uL RBC (4.30-5.90) m/uL Hgb (13.0-17.5) gm/dL Hct (39.0-53.0) % MCV (80.0-100.0) fL MCH (25.0-35.0) pg MCHC (31.0-37.0) g/dL RDW (11.5-15.5) % Plt Count (150-450) k/uL Neutrophils % % Lymphocytes % % Monocytes % % Eosinophils % % Basophils % % Neutrophils # (1.3-7.7) k/uL Lymphocytes # (1.0-4.8) k/uL Monocytes # (0-1.0) k/uL Eosinophils # (0-0.7) k/uL Basophils # (0-0.2) k/uL PT 9.5 (9.0-12.0) sec INR 0.9 (<1.2) APTT 32.9 H (22.0-30.0) sec D-Dimer (<0.60) mg/L FEU Sodium (137-145) mmol/L Potassium (3.5-5.1) mmol/L Chloride (98-107) mmol/L Carbon Dioxide (22-30) mmol/L Anion Gap mmol/L BUN (9-20) mg/dL Creatinine (0.66-1.25) mg/dL Est GFR (CKD-EPI)AfAm (>60 ml/min/1.73 sqM) Est GFR (CKD-EPI)NonAf (>60 ml/min/1.73 sqM) Glucose (74-99) mg/dL Plasma Lactic Acid Viktor (0.7-2.0) mmol/L Calcium (8.4-10.2) mg/dL Magnesium (1.6-2.3) mg/dL Total Bilirubin (0.2-1.3) mg/dL AST (17-59) U/L ALT (4-49) U/L Alkaline Phosphatase (38-126) U/L Lactate Dehydrogenase (313-618) U/L Troponin I <0.012 (0.000-0.034) ng/mL C-Reactive Protein (<10.0) mg/L NT-Pro-B Natriuret Pep pg/mL Total Protein (6.3-8.2) g/dL Albumin (3.5-5.0) g/dL Urine Color Yellow Urine Appearance Clear (Clear) Urine pH 6.0 (5.0-8.0) Ur Specific [place] 1.016 (1.001-1.035) Urine Protein 1+ H (Negative) Urine Glucose (UA) Negative (Negative) Urine Ketones Negative (Negative) Urine Blood Negative (Negative) Urine Nitrite Negative (Negative) Urine Bilirubin Negative (Negative) Urine Urobilinogen 4.0 (<2.0) mg/dL Ur Leukocyte Esterase Negative (Negative) Urine RBC 1 (0-5) /hpf Urine WBC 2 (0-5) /hpf Hyaline Casts 1 (0-2) /lpf Urine Mucus Rare H (None) /hpf Urine Opiates Screen Detected H (NotDetected) Ur Oxycodone Screen Not Detected (NotDetected) Urine Methadone Screen Not Detected (NotDetected) Ur Propoxyphene Screen Not Detected (NotDetected) Ur Barbiturates Screen Not Detected (NotDetected) U Tricyclic Antidepress Not Detected (NotDetected) Ur Phencyclidine Scrn Not Detected (NotDetected) Ur Amphetamines Screen Not Detected (NotDetected) U Methamphetamines Scrn Not Detected (NotDetected) U Benzodiazepines Scrn Not Detected (NotDetected) Urine Cocaine Screen Not Detected (NotDetected) U Marijuana (THC) Screen Detected H (NotDetected) 01/03/20 01/03/20 01/03/20 Range/Units 10:29 10:34 11:08 WBC (3.8-10.6) k/uL RBC (4.30-5.90) m/uL Hgb (13.0-17.5) gm/dL Hct (39.0-53.0) % MCV (80.0-100.0) fL MCH (25.0-35.0) pg MCHC (31.0-37.0) g/dL RDW (11.5-15.5) % Plt Count (150-450) k/uL Neutrophils % % Lymphocytes % % Monocytes % % Eosinophils % % Basophils % % Neutrophils # (1.3-7.7) k/uL Lymphocytes # (1.0-4.8) k/uL Monocytes # (0-1.0) k/uL Eosinophils # (0-0.7) k/uL Basophils # (0-0.2) k/uL PT (9.0-12.0) sec INR (<1.2) APTT (22.0-30.0) sec D-Dimer (<0.60) mg/L FEU Sodium (137-145) mmol/L Potassium (3.5-5.1) mmol/L Chloride (98-107) mmol/L Carbon Dioxide (22-30) mmol/L Anion Gap mmol/L BUN (9-20) mg/dL Creatinine (0.66-1.25) mg/dL Est GFR (CKD-EPI)AfAm (>60 ml/min/1.73 sqM) Est GFR (CKD-EPI)NonAf (>60 ml/min/1.73 sqM) Glucose (74-99) mg/dL Plasma Lactic Acid Viktor 1.9 (0.7-2.0) mmol/L Calcium (8.4-10.2) mg/dL Magnesium (1.6-2.3) mg/dL Total Bilirubin (0.2-1.3) mg/dL AST (17-59) U/L ALT (4-49) U/L Alkaline Phosphatase (38-126) U/L Lactate Dehydrogenase 883 H (313-618) U/L Troponin I (0.000-0.034) ng/mL C-Reactive Protein 588.7 H (<10.0) mg/L NT-Pro-B Natriuret Pep 813 pg/mL Total Protein (6.3-8.2) g/dL Albumin (3.5-5.0) g/dL Urine Color Urine Appearance (Clear) Urine pH (5.0-8.0) Ur Specific [place] (1.001-1.035) Urine Protein (Negative) Urine Glucose (UA) (Negative) Urine Ketones (Negative) Urine Blood (Negative) Urine Nitrite (Negative) Urine Bilirubin (Negative) Urine Urobilinogen (<2.0) mg/dL Ur Leukocyte Esterase (Negative) Urine RBC (0-5) /hpf Urine WBC (0-5) /hpf Hyaline Casts (0-2) /lpf Urine Mucus (None) /hpf Urine Opiates Screen (NotDetected) Ur Oxycodone Screen (NotDetected) Urine Methadone Screen (NotDetected) Ur Propoxyphene Screen (NotDetected) Ur Barbiturates Screen (NotDetected) U Tricyclic Antidepress (NotDetected) Ur Phencyclidine Scrn (NotDetected) Ur Amphetamines Screen (NotDetected) U Methamphetamines Scrn (NotDetected) U Benzodiazepines Scrn (NotDetected) Urine Cocaine Screen (NotDetected) U Marijuana (THC) Screen (NotDetected) - EKG Data -: EKG Interpreted by Me (and Dr. Wang ) EKG Comments: ventricular rate 76, Pr interval 144, QRS 92, QT/QTC 390/438. Normal sinus rhythm, normal EKG, no concern for acute ischemia. Disposition Clinical Impression: Suspected COVID-19 virus infection Disposition: HOME SELF-CARE Condition: Stable Instructions (If sedation given, give patient instructions): Acute Cough (ED) Additional Instructions: follow-up with primary care provider tomorrow. Self quarantine until results. Use albuterol inhaler as needed for shortness of breath or wheezing. Use 2 puffs every 4-6 hours as needed. Take antibiotics as directed. Have close follow-up with your primary care provider tomorrow. Return immediately to ER if any worsening symptoms. Prescriptions: Azithromycin [Zithromax Z-pack] 0 mg PO DIRECTED #6 tab Is patient prescribed a controlled substance at d/c from ED?: No Referrals: Kiet Tomlin Jr, [Primary Care Provider] - 1-2 days
--- NOTE | 2020-01-03 10:45 | XR ---
EXAMINATION TYPE: XR chest 2V DATE OF EXAM: 01/03/2020 COMPARISON: 11/08/2019 HISTORY: 35-year-old male with chest pain TECHNIQUE: PA and lateral views FINDINGS: Heart normal size. Aorta within normal limits. Interstitial and patchy opacities diffusely throughout the lungs. IMPRESSION: Diffuse interstitial and patchy opacities bilaterally. Further clinical correlation will be needed. C onsider developing pulmonary edema, atypical pneumonias, interstitial pneumonitis, hypersensitivity p neumonitis, and vasculitis as some differential considerations.
[2020-01-03 10:51] LABS: ALT 36 U/L (4-49); AST 59 U/L (17-59); African American GFR (CKD) >90 (>60 ml/min/1.73 sqM); Albumin 3.6 g/dL (3.5-5.0); Alkaline Phosphatase 236 U/L (38-126); Anion Gap 12 mmol/L; Blood Urea Nitrogen 17 mg/dL (9-20); Calcium 8.8 mg/dL (8.4-10.2); Carbon Dioxide 28 mmol/L (22-30); Chloride 95 mmol/L (98-107); Glucose 123 mg/dL (74-99); Magnesium 2.8 mg/dL (1.6-2.3); Non-African American GFR(CKD) >90 (>60 ml/min/1.73 sqM); Potassium 3.7 mmol/L (3.5-5.1); Sodium 135 mmol/L (137-145); Total Bilirubin 1.1 mg/dL (0.2-1.3); Total Protein 6.7 g/dL (6.3-8.2)
[2020-01-03] MEDS ORDERED: AZITHROMYCIN 500 MG TAB PO STA (10:51)
[2020-01-03 11:07] LABS: Basophils % (A) 0 %; Eosinophils % (A) 0 %; HCT 33.3 % (39.0-53.0); Lymphocytes # (A) 0.5 k/uL (1.0-4.8); Lymphocytes % (A) 5 %; MCH 32.1 pg (25.0-35.0); MCHC 32.9 g/dL (31.0-37.0); MCV 97.5 fL (80.0-100.0); Mean Platelet Volume 8.1; Monocytes # (A) 0.3 k/uL (0-1.0); Monocytes % (A) 3 %; Neutrophils # (A) 10.1 k/uL (1.3-7.7); Neutrophils % (A) 92 %; Platelet Count 402 k/uL (150-450); RBC 3.41 m/uL (4.30-5.90); RDW 13.1 % (11.5-15.5)
[2020-01-03 11:28] LABS: Appearance,Urine Clear (Clear); Bilirubin,Urine Negative (Negative); Blood,Urine Negative (Negative); Color,Urine Yellow; Glucose,Urine (UA) Negative (Negative); Hyaline Casts,Urine 1 /lpf (0-2); Ketones,Urine Negative (Negative); Leukocyte Esterase,Urine Negative (Negative); Mucus,Urine Rare /hpf; Nitrite,Urine Negative (Negative); Protein,Urine 1+ (Negative); RBC,Urine 1 /hpf (0-5); Specific Gravity,Urine 1.016 (1.001-1.035); WBC,Urine 2 /hpf (0-5)
[2020-01-03 11:53] LABS: Amphetamine Screen,Urine Not Detected (NotDetected); Barbiturate Screen,Urine Not Detected (NotDetected); Benzodiazepines Screen,Urine Not Detected (NotDetected); Cocaine Screen,Urine Not Detected (NotDetected); Methadone Screen, Urine Not Detected (NotDetected); Opiate Screen,Urine Detected (NotDetected); Oxycodone Screen, Urine Not Detected (NotDetected); Phencyclidine Screen,Urine Not Detected (NotDetected); Tricyclic Antidepressant,Urine Not Detected (NotDetected); Urn Cannabinoid Scrn Detected (NotDetected)
[2020-01-03 12:11] LABS: INR 0.9 (<1.2); Partial Thromboplastin Time 32.9 sec (22.0-30.0); Prothrombin Time 9.5 sec (9.0-12.0)
--- NOTE | 2020-01-03 12:24 | CT ---
EXAMINATION TYPE: CT chest angio for PE DATE OF EXAM: 01/03/2020 COMPARISON: Radiograph earlier today HISTORY: 35 year-old male shortness of breath, dyspnea upon exertion TECHNIQUE: Contiguous axial scanning of the chest performed with IV Contrast, patient injected with 6 5 mL of Isovue 370. Coronal/sagittal MIP reconstructions performed. CT DLP: 453.4 mGycm Automated exposure control for dose reduction was used. FINDINGS: Heart normal size without pericardial effusion. No flattening of the interventricular septum or reflu x of contrast into the hepatic veins. Aorta normal caliber with a bovine configuration to the aortic arch. No thoracic lymphadenopathy by CT size criteria. Satisfactory opacification the pulmonary arterial system, with mild breathing motion artifacts. No la rge central or lobar branch embolus. Many of the segmental and more distal arterial branches are nond iagnostic and emboli in these locations cannot be excluded on the basis of this exam. There is nodular, patchy, confluent groundglass throughout the bilateral lungs, left greater than rig ht. There may be some subpleural sparing. No pleural effusion. Relative sparing of the lung bases. Visualized upper abdomen shows no gross abnormality. Bones: No osseous destructive process. IMPRESSION: 1. BREATHING MOTION ARTIFACT. NO LARGE CENTRAL OR LOBAR BRANCH PULMONARY EMBOLUS. MANY OF THE SEGMENT AL AND MORE DISTAL ARTERIAL BRANCHES ARE NONDIAGNOSTIC AND EMBOLI IN THESE LOCATIONS CANNOT BE EXCLUD ED ON THE BASIS OF THIS EXAM. 2. NODULAR, PATCHY, AND CONFLUENT GROUNDGLASS THROUGHOUT THE BILATERAL LUNGS, LEFT GREATER THAN RIGHT . THERE IS SOME SUBPLEURAL SPARING WHICH CAN BE SEEN WITH NSIP. HOWEVER, THE OVERALL PATTERN IS NONSP ECIFIC. DIFFERENTIAL CONSIDERATIONS INCLUDE ATYPICAL INFECTIONS (INCLUDING COVID PNEUMONIA), NONCARDI OGENIC PULMONARY EDEMA, RB-ILD, HYPERSENSITIVITY PNEUMONITIS, AND VASCULITIS SUCH GOODPASTURE'S DI SEASE. FURTHER CLINICAL CORRELATION WILL BE NEEDED.
[2020-01-03 12:40] LABS: C Reactive Protein 588.7 mg/L (<10.0)
[2020-01-03] MEDS ORDERED: ALBUTEROL NEBULIZED 2.5 MG/3 ML INHALATION STA (14:54)
[2020-01-03] MEDS ORDERED: ALBUTEROL HFA INHALER INHALATION STA (15:03)
[2020-01-03 15:22] VITALS: BP 129/81; PULSE 89; RESP 16; TEMP 98.5
[2020-01-03 17:33] LABS: Ferritin 594.4 ng/mL (22.0-322.0)
== END 2020-01-03 15:20 | disposition home or self-care (01) ==
LOC: EC 09:55
DX: R07.9 Chest pain, unspecified (principal); R05 Cough; R06.02 Shortness of breath; R09.89 Other specified symptoms and signs involving the circulatory and respiratory systems; R51 Headache; R91.8 Other nonspecific abnormal finding of lung field; R79.89 Other specified abnormal findings of blood chemistry; F41.9 Anxiety disorder, unspecified; F32.9 Major depressive disorder, single episode, unspecified; Z79.899 Other long term (current) drug therapy; Z95.5 Presence of coronary angioplasty implant and graft; Z20.828 Contact with and (suspected) exposure to other viral communicable diseases
CPT/HCPCS: 36415; 94640; 85379; 83880; 80053; 82728; 83605; 83615; 83735; 84484; 85025; 85610; 85730; 86140; 81001; 87040; 80306; 84145; 71046; 71275; 99285; 96365; U0003; J0696; Q9967

== ENCOUNTER 2020-04-08 11:26 | Emergency (ER) | payer OTHER ==
[2020-04-08 11:34] VITALS: RESP 18
[2020-04-08 12:30] LABS: ALT 57 U/L (4-49); AST 63 U/L (17-59); African American GFR (CKD) >90 (>60 ml/min/1.73 sqM); Albumin 3.4 g/dL (3.5-5.0); Alkaline Phosphatase 94 U/L (38-126); Anion Gap 7 mmol/L; Basophils % (A) 1 %; Blood Urea Nitrogen 6 mg/dL (9-20); Calcium 8.6 mg/dL (8.4-10.2); Carbon Dioxide 30 mmol/L (22-30); Chloride 102 mmol/L (98-107); Eosinophils # (A) 0.2 k/uL (0-0.7); Eosinophils % (A) 2 %; Glucose 91 mg/dL (74-99); HCT 34.3 % (39.0-53.0); HGB 11.5 gm/dL (13.0-17.5); Lymphocytes # (A) 1.1 k/uL (1.0-4.8); Lymphocytes % (A) 14 %; MCH 32.1 pg (25.0-35.0); MCHC 33.6 g/dL (31.0-37.0); MCV 95.5 fL (80.0-100.0); Mean Platelet Volume 6.9; Monocytes # (A) 0.4 k/uL (0-1.0); Monocytes % (A) 5 %; Neutrophils # (A) 6.2 k/uL (1.3-7.7); Neutrophils % (A) 77 %; Non-African American GFR(CKD) >90 (>60 ml/min/1.73 sqM); Platelet Count 426 k/uL (150-450); RBC 3.59 m/uL (4.30-5.90); RDW 15.5 % (11.5-15.5); Sodium 139 mmol/L (137-145); Total Bilirubin 0.7 mg/dL (0.2-1.3)
--- NOTE | 2020-04-08 12:38 | US ---
EXAMINATION TYPE: US venous doppler duplex LE BI DATE OF EXAM: 04/08/2020 12:29 PM COMPARISON: NONE CLINICAL HISTORY: swelling, pain. Edema SIDE PERFORMED: Bilateral TECHNIQUE: The lower extremity deep venous system is examined utilizing real time linear array sonog jaci with graded compression, doppler sonography and color-flow sonography. VESSELS IMAGED: Common Femoral Vein Deep Femoral Vein Greater Saphenous Vein * Femoral Vein Popliteal Vein Small Saphenous Vein * Proximal Calf Veins (* superficial vessels) Right Leg: Negative for DVT Left Leg: Negative for DVT IMPRESSION: 1. Bilateral lower extremity ultrasound negative for deep venous thrombosis.
[2020-04-08 12:41] LABS: Potassium 2.7 mmol/L (3.5-5.1)
[2020-04-08] MEDS ORDERED: POTASSIUM CHLORIDE ER 20 MEQ TAB.ER PO STA (12:47)
[2020-04-08] MEDS: POTASSIUM CHLORIDE 20 MEQ in WATER FOR INJECTION 1 100ML.BAG IVPB SCH ×2 (13:07→14:59)
[2020-04-08 13:20] LABS: INR 0.9 (<1.2); Prothrombin Time 9.5 sec (9.0-12.0)
[2020-04-08 13:21] LABS: Partial Thromboplastin Time 25.8 sec (22.0-30.0)
[2020-04-08 13:29] VITALS: BP 143/91; PULSE 93; TEMP 97
--- NOTE | 2020-04-08 13:29 | ED ---
Extremity Problem HPI <Ignacio Kohli - Last Filed: 04/08/20 14:07> - General Source: patient Mode of arrival: wheelchair Limitations: no limitations <Radha Magdaleno - Last Filed: 04/08/20 15:12> - General Chief complaint: Extremity Problem,Nontraumatic Stated complaint: Leg Swelling Time Seen by Provider: 04/08/20 11:36 - History of Present Illness Initial comments: Patient is a 35-year-old male presenting to emergency Department with complaints of bilateral lower leg swelling has been increasing over the past few weeks. Patient states he did start a job so he is on his feet more often, 12 hour shifts. Patient states he is wearing compression stockings however they've not been helping. Patient states he had a heart cath in October of this year secondary to having chest pains however they did not find any blockages. Patient states he takes no medications at this time. He did admit that he used drink heavily however he states he only drinks occasionally now. Patient denies any abdominal pain, no fever, no chills. He denies any chest pain, strokes of breath, nausea, vomiting or diarrhea. Patient states he is also having cramping of his feet, more so in the right foot. Patient states it's getting the point where it hurts to even walk. Patient denies history of blood clots. He has no further complaints at this time. Upon arrival to the ER, his vitals are stable. (Radha Magdaleno) - Related Data Home Medications Medication Instructions Recorded Confirmed PARoxetine [Paxil] 10 mg PO DAILY 04/08/20 04/08/20 traZODone HCL [Desyrel] 50 mg PO HS PRN 04/08/20 04/08/20 Previous Rx's Medication Instructions Recorded Potassium Chloride ER [K-Dur 20] 20 meq PO DAILY 7 Days #7 tab 04/08/20 Allergies Allergy/AdvReac Type Severity Reaction Status Date / Time No Known Allergies Allergy Verified 04/08/20 13:18 Review of Systems ROS Other: All systems not noted in ROS Statement are negative. <Ignacio Kohli - Last Filed: 04/08/20 14:07> ROS Other: All systems not noted in ROS Statement are negative. <Radha Magdaleno - Last Filed: 04/08/20 15:12> ROS Statement: Those systems with pertinent positive or pertinent negative responses have been documented in the HPI. Past Medical History Past Medical History: Hypertension Additional Past Medical History / Comment(s): Hypertension, currently being treated History of Any Multi-Drug Resistant Organisms: None Reported Past Surgical History: Adenoidectomy, Appendectomy, Ear Surgery, Heart Catheterization, Orthopedic Surgery, Tonsillectomy Additional Past Surgical History / Comment(s): Colonoscopy, ORIF L ankle. ear tubes as a child. Past Anesthesia/Blood Transfusion Reactions: No Reported Reaction Past Psychological History: Anxiety, Depression Smoking Status: Never smoker Past Alcohol Use History: Occasional Past Drug Use History: Marijuana - Past Family History Father Family Medical History: Diabetes Mellitus, Hyperlipidemia, Hypertension Additional Family Medical History / Comment(s): gout Mother Family Medical History: Hypertension <SharlaRadha Gt - Last Filed: 04/08/20 15:12> General Exam Limitations: no limitations <SharlaRadha Gt - Last Filed: 04/08/20 15:12> - General Exam Comments Initial Comments: GENERAL: Patient is well-developed and well-nourished. Patient is nontoxic and in no acute distress. HEAD: Atraumatic, normocephalic. EYES: Pupils equal round and reactive to light, extraocular movements intact, sclera anicteric, conjunctiva are normal. Eyelids were unremarkable. ENT: TMs normal, nares patent, oropharynx clear without exudates. Moist mucous membranes. NECK: Normal range of motion, supple without lymphadenopathy or JVD. LUNGS: Unlabored respirations. Breath sounds clear to auscultation bilaterally and equal. No wheezes rales or rhonchi. HEART: Regular rate and rhythm without murmurs, rubs or gallops. ABDOMEN: Soft, nontender, normoactive bowel sounds. No guarding, no rebound. No masses appreciated. : Deferred MUSCULOSKELETAL: Normal extremities with adequate strength and normal range of motion, no pitting or edema. No clubbing or cyanosis. Patient is neurovascular intact bilateral lower extremities, he does have some mild swelling to both feet, no pitting edema. He does have some tenderness of the right foot, no erythema or signs of infection. NEUROLOGICAL: Patient is alert and oriented x 3. Motor and sensory are also intact. Cranial nerves II through XII grossly intact. Symmetrical smile. Normal speech, normal gait. PSYCH: Normal mood, normal affect. SKIN: Warm, Dry, normal turgor, no rashes or lesions noted. (Radha Magdaleno) Course <Ignacio Kohli - Last Filed: 04/08/20 14:07> Vital Signs 04/08/20 04/08/20 11:28 13:28 Temperature 98.3 F 97 F L Pulse Rate 97 93 Respiratory 18 18 Rate Blood Pressure 141/93 143/91 O2 Sat by Pulse 98 97 Oximetry - Reevaluation(s) Reevaluation #1: 04/08/20 14:07 35-year-old male with bilateral lower extremity swelling. Only medication the patient is currently on his antidepressant. He is mentating is hypertensive in the past but is not currently on any antihypertensive medication. Workup does reveal a potassium of 2.7 with no specific etiology known at this time. This is replaced with both IV and oral potassium. I did discuss case with Dr. Diego berry, he will arrange for further outpatient workup regarding this hypokalemia as well as lower extremity swelling. Patient will be started on oral potassium replacement for one week. He will return with worsening or changing symptoms. (Ignacio Kohli) Medical Decision Making - Lab Data Result diagrams: 04/08/20 12:14 04/08/20 12:14 <Ignacio Kohli - Last Filed: 04/08/20 14:07> - Lab Data Result diagrams: 04/08/20 12:14 04/08/20 12:14 <Radha Magdaleno - Last Filed: 04/08/20 15:12> - Medical Decision Making Patient is a 35-year-old male here for lower leg edema, pain/cramping of the right foot and ankle. His vital signs are stable. Bilateral lower extremity ultrasound reveals no evidence for DVT. I did do basic labs which showed a potassium of 2.7. We did order an EKG which reveals some T-wave inversions however no signs of acute ischemia, he is not having any chest pain or shortness of breath. Rest of labs are stable. Patient was given 40 oral potassium and 20 IV potassium. We did discuss case with Dr. Becerra who is covering for Dr. Conklin, who is okay with patient being discharged on 20 of potassium daily and they will see in the office Eron or Friday morning. Patient is in agreement with this plan of care. He is stable for discharge. Return parameters were discussed with the patient he verbalizes understanding. Case discussed with Dr. Kohli. (Radha Magdaleno) - Lab Data Lab Results 04/08/20 04/08/20 04/08/20 Range/Units 12:14 12:14 12:54 WBC 8.0 (3.8-10.6) k/uL RBC 3.59 L (4.30-5.90) m/uL Hgb 11.5 L (13.0-17.5) gm/dL Hct 34.3 L (39.0-53.0) % MCV 95.5 (80.0-100.0) fL MCH 32.1 (25.0-35.0) pg MCHC 33.6 (31.0-37.0) g/dL RDW 15.5 (11.5-15.5) % Plt Count 426 (150-450) k/uL MPV 6.9 Neutrophils % 77 % Lymphocytes % 14 % Monocytes % 5 % Eosinophils % 2 % Basophils % 1 % Neutrophils # 6.2 (1.3-7.7) k/uL Lymphocytes # 1.1 (1.0-4.8) k/uL Monocytes # 0.4 (0-1.0) k/uL Eosinophils # 0.2 (0-0.7) k/uL Basophils # 0.0 (0-0.2) k/uL PT 9.5 (9.0-12.0) sec INR 0.9 (<1.2) APTT 25.8 (22.0-30.0) sec Sodium 139 (137-145) mmol/L Potassium 2.7 L* (3.5-5.1) mmol/L Chloride 102 (98-107) mmol/L Carbon Dioxide 30 (22-30) mmol/L Anion Gap 7 mmol/L BUN 6 L (9-20) mg/dL Creatinine 0.66 (0.66-1.25) mg/dL Est GFR (CKD-EPI)AfAm >90 (>60 ml/min/1.73 sqM) Est GFR (CKD-EPI)NonAf >90 (>60 ml/min/1.73 sqM) Glucose 91 (74-99) mg/dL Calcium 8.6 (8.4-10.2) mg/dL Magnesium (1.6-2.3) mg/dL Total Bilirubin 0.7 (0.2-1.3) mg/dL AST 63 H (17-59) U/L ALT 57 H (4-49) U/L Alkaline Phosphatase 94 (38-126) U/L Total Protein 6.0 L (6.3-8.2) g/dL Albumin 3.4 L (3.5-5.0) g/dL 04/08/20 Range/Units 12:54 WBC (3.8-10.6) k/uL RBC (4.30-5.90) m/uL Hgb (13.0-17.5) gm/dL Hct (39.0-53.0) % MCV (80.0-100.0) fL MCH (25.0-35.0) pg MCHC (31.0-37.0) g/dL RDW (11.5-15.5) % Plt Count (150-450) k/uL MPV Neutrophils % % Lymphocytes % % Monocytes % % Eosinophils % % Basophils % % Neutrophils # (1.3-7.7) k/uL Lymphocytes # (1.0-4.8) k/uL Monocytes # (0-1.0) k/uL Eosinophils # (0-0.7) k/uL Basophils # (0-0.2) k/uL PT (9.0-12.0) sec INR (<1.2) APTT (22.0-30.0) sec Sodium (137-145) mmol/L Potassium (3.5-5.1) mmol/L Chloride (98-107) mmol/L Carbon Dioxide (22-30) mmol/L Anion Gap mmol/L BUN (9-20) mg/dL Creatinine (0.66-1.25) mg/dL Est GFR (CKD-EPI)AfAm (>60 ml/min/1.73 sqM) Est GFR (CKD-EPI)NonAf (>60 ml/min/1.73 sqM) Glucose (74-99) mg/dL Calcium (8.4-10.2) mg/dL Magnesium 1.9 (1.6-2.3) mg/dL Total Bilirubin (0.2-1.3) mg/dL AST (17-59) U/L ALT (4-49) U/L Alkaline Phosphatase (38-126) U/L Total Protein (6.3-8.2) g/dL Albumin (3.5-5.0) g/dL - EKG Data EKG Comments: Normal sinus rhythm, some mild T-wave inversions, no signs of acute ischemia. Ventricular rate 87, P1 50, QT 370. (Radha Magdaleno) Disposition <Ignacio Kohli - Last Filed: 04/08/20 14:07> Is patient prescribed a controlled substance at d/c from ED?: No <Radha Magdaleno - Last Filed: 04/08/20 15:12> Clinical Impression: Lower leg edema, Cramp in lower leg, Hypokalemia Disposition: HOME SELF-CARE Condition: Stable Instructions (If sedation given, give patient instructions): Hypokalemia (ED) Additional Instructions: Please return to the Emergency Department if symptoms worsen or any other concerns. Take 20 of potassium as prescribed daily, important to follow up with your PCP on Friday or Friday morning as discussed. Prescriptions: Potassium Chloride ER [K-Dur 20] 20 meq PO DAILY 7 Days #7 tab Referrals: Kiet Tomlin Jr, [Primary Care Provider] - 1-2 days
== END 2020-04-08 15:00 | disposition home or self-care (01) ==
LOC: EC 11:26
DX: R60.0 Localized edema (principal); R25.2 Cramp and spasm; E87.6 Hypokalemia; F32.9 Major depressive disorder, single episode, unspecified; F41.9 Anxiety disorder, unspecified; Z79.899 Other long term (current) drug therapy; Z95.5 Presence of coronary angioplasty implant and graft; Z90.49 Acquired absence of other specified parts of digestive tract; Z90.89 Acquired absence of other organs
CPT/HCPCS: 36415; 93005; 80053; 83735; 85025; 85610; 85730; 93970; 99284; J3480

== ENCOUNTER 2023-01-09 20:30 | Emergency (ER) | payer OTHER ==
[2023-01-09 20:36] VITALS: RESP 18
[2023-01-09 22:15] LABS: Appearance,Urine Clear (Clear); Bilirubin,Urine Negative (Negative); Blood,Urine Negative (Negative); Color,Urine Colorless; Glucose,Urine (UA) Negative (Negative); Ketones,Urine Negative (Negative); Leukocyte Esterase,Urine Negative (Negative); Nitrite,Urine Negative (Negative); Protein,Urine Negative (Negative); Specific Gravity,Urine 1.005 (1.001-1.035); Urobilinogen,Urine <2.0 mg/dL (<2.0)
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
[2023-01-10 05:08] LABS: Urine Alcohol Positive (Negative); Urine Barbiturate Negative (Negative); Urine Cocaine Negative (Negative); Urine Methadone Negative (Negative); Urine Opiates Negative (Negative); Urine Phencyclidine Negative (Negative)
[2023-01-10 15:27] VITALS: BP 153/97; PULSE 83; TEMP 98.8
== END 2023-01-10 14:22 | disposition home or self-care (01) ==
LOC: EC 20:30
DX: F10.129 Alcohol abuse with intoxication, unspecified (principal); I10 Essential (primary) hypertension; F12.90 Cannabis use, unspecified, uncomplicated; Z86.59 Personal history of other mental and behavioral disorders; Z20.822 Contact with and (suspected) exposure to COVID-19
CPT/HCPCS: 80306; 81003; 82075; 87635; 99285

== ENCOUNTER → 2023-07-08 | Outpatient (CLI) | payer OTHER ==
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
== END | disposition home or self-care (01) ==
LOC: RADUSWWP 07:23
PROVIDERS: ATTEND Family Medicine
DX: R16.1 Splenomegaly, not elsewhere classified (principal)
CPT/HCPCS: 76700

== ENCOUNTER 2023-07-22 12:59 | Emergency (ER) | payer OTHER ==
--- NOTE | 2023-07-22 13:20 | ED ---
General Adult HPI - General Chief complaint: Seizure Stated complaint: siezure Time Seen by Provider: 07/22/23 13:08 Source: patient, EMS Mode of arrival: EMS Limitations: no limitations - History of Present Illness Initial comments: Patient is a pleasant 38-year-old male present to the emergency department with concern for seizure. Patient states he does not recall the episode however his mother told him that he had a seizure. Patient denies any history of seizures. Patient states last alcohol use was around 190 days ago. Patient denies any inj ury. Patient did urinate on himself. Patient was confused for several minutes following the episode however feels close to normal at this point. - Related Data Home Medications Medication Instructions Recorded Confirmed No Known Home Medications 01/09/23 01/09/23 Allergies Allergy/AdvReac Type Severity Reaction Status Date / Time No Known Allergies Allergy Verified 07/22/23 13:07 Review of Systems ROS Statement: Those systems with pertinent positive or pertinent negative responses have been documented in the HPI. ROS Other: All systems not noted in ROS Statement are negative. Constitutional: Denies: fever Eyes: Denies: eye pain ENT: Denies: ear pain Respiratory: Denies: cough, dyspnea Cardiovascular: Denies: chest pain Neurological: Reports: as per HPI. Denies: headache, weakness Past Medical History Past Medical History: Hypertension Additional Past Medical History / Comment(s): Hypertension, currently being treated History of Any Multi-Drug Resistant Organisms: None Reported Past Surgical History: Adenoidectomy, Appendectomy, Ear Surgery, Heart Catheterization, Orthopedic Surgery, Tonsillectomy Additional Past Surgical History / Comment(s): Colonoscopy, ORIF L ankle. ear tubes as a child. Past Anesthesia/Blood Transfusion Reactions: No Reported Reaction Past Psychological History: Anxiety, Depression Smoking Status: Never smoker Past Alcohol Use History: Occasional Past Drug Use History: Marijuana - Past Family History Father Family Medical History: Diabetes Mellitus, Hyperlipidemia, Hypertension Additional Family Medical History / Comment(s): gout Mother Family Medical History: Hypertension Occupational Seizure History - Commerical Driving History Currently uses [employer] for employment (including self-employed).: No General Exam Limitations: no limitations General appearance: alert, in no apparent distress Head exam: Present: normocephalic Eye exam: Present: normal appearance, PERRL, EOMI. Absent: nystagmus ENT exam: Present: normal oropharynx Neck exam: Present: normal inspection Respiratory exam: Present: normal lung sounds bilaterally Cardiovascular Exam: Present: regular rate, normal rhythm GI/Abdominal exam: Present: soft. Absent: tenderness Extremities exam: Present: tenderness (Mild tenderness right knee. Patient refuses x-ray or further evaluation on this.) Neurological exam: Present: alert, oriented X3, CN II-XII intact. Absent: motor sensory deficit Expanded Neurological exam: Present: protecting the airway Speech: Present: fluid speech Cranial nerves: EOM's Intact: Normal Sensory exam: Upper Extremity Light Touch: Normal, Lower Extremity Light Touch: Normal Motor strength exam: RUE: 5, LUE: 5, RLE: 5, LLE: 5 Eye Response: (4) open spontaneously Motor Response: (6) obeys commands Verbal Response: (5) oriented Psychiatric exam: Present: normal affect, normal mood Skin exam: Present: normal color Course Vital Signs 07/22/23 13:01 Pulse Rate 125 H Respiratory 18 Rate Blood Pressure 125/83 O2 Sat by Pulse 95 Oximetry EKG Findings - EKG Results: EKG: interpreted by TANIKA (Heart rate 108. Nonspecific T waves.), sinus rhythm, normal axis, normal QRS EKG shows: tachycardia Medical Decision Making - Medical Decision Making Patient was warned of potential seizures associated with Wellbutrin. Also that he will need to discuss this with his doctor and potentially wean off this Was pt. sent in by a medical professional or institution (ANABEL Corley, GREENHOUSE TECHNICIAN, urgent care, hospital, or jail...) When possible be specific @ -No Did you speak to anyone other than the patient for history (EMS, parent, family, police, friend...)? What history was obtained from this source @ -No Did you review nursing and triage notes (agree or disagree)? Why? @ -I reviewed and agree with nursing and triage notes Were old charts reviewed (outside hosp., previous admission, EMS record, old EKG, old radiological studies, urgent care reports/EKG's, jail records)? Report findings @ -No old charts were reviewed Differential Diagnosis (chest pain, altered mental status, abdominal pain women, abdominal pain men, vaginal bleeding, weakness, fever, dyspnea, syncope, headache, dizziness, GI bleed, back pain, seizure, CVA, palpatations, mental hea lth, musculoskeletal)? @ -Differential Seizure: Recurrent seizure disorder, febrile seizure, alcohol withdrawal, stimulants, meningitis, encephalitis, intercranial hemorrhage, intracranial tumor, stroke, eclampsia, thyrotoxicosis, hypocalcemia, hyponatremia, hypernatremia, hypomagnesemia, psychogenic, this is not meant to be an all-inclusive list. EKG interpreted by me (3pts min.). @ -As above X-rays interpreted by me (1pt min.). @ -None done CT interpreted by me (1pt min.). @ -CT brain does not reveal acute abnormality U/S interpreted by me (1pt. min.). @ -None done What testing was considered but not performed or refused? (CT, X-rays, U/S, labs)? Why? @ -None What meds were considered but not given or refused? Why? @ -Consider anticonvulsants however this is patient's first seizure and he is on Wellbutrin but can be weaned Did you discuss the management of the patient with other professionals (professionals i.e. , PA, GREENHOUSE TECHNICIAN, lab, RT, psych nurse, oncology social work, dissolver operator, teacher, child support officer, medical case worker)? Give summary @ -No Was smoking cessation discussed for >3mins.? @ -No Was critical care preformed (if so, how long)? @ -No Were there social determinants of health that impacted care today? How? (Homelessness, low income, unemployed, alcoholism, drug addiction, transportation, low edu. Level, literacy, decrease access to med. care, detention, rehab)? @ -No Was there de-escalation of care discussed even if they declined (Discuss DNR or withdrawal of care, Hospice)? DNR status @ -No What co-morbidities impacted this encounter? (DM, HTN, Smoking, COPD, CAD, Can cer, CVA, ARF, Chemo, Hep., AIDS, mental health diagnosis, sleep apnea, morbid obesity)? @ -None Was patient admitted / discharged? Hospital course, mention meds given and route, prescriptions, significant lab abnormalities, going to OR and other pertinent info. @ -Patient reevaluated and resting comfortably in bed, symptom-free. Patient and family are updated on results and plan. Patient advised to talk with his doctor tomorrow and start weaning off Wellbutrin Undiagnosed new problem with uncertain prognosis? @ -No Drug Therapy requiring intensive monitoring for toxicity (Heparin, Nitro, Insulin, Cardizem)? @ -No Were any procedures done? @ -No Diagnosis/symptom? @ -Seizure Acute, or Chronic, or Acute on Chronic? @ -Acute Uncomplicated (without systemic symptoms) or Complicated (systemic symptoms)? @ -Default Side effects of treatment? @ -No Exacerbation, Progression, or Severe Exacerbation? @ -No Poses a threat to life or bodily function? How? (Chest pain, USA, NE, pneumonia, PE, COPD, DKA, ARF, appy, cholecystitis, CVA, Diverticulitis, Homicidal, Suicidal, threat to staff... and all critical care pts) @ -No - Lab Data Result diagrams: 07/22/23 13:25 07/22/23 16:10 Lab Results 07/22/23 07/22/23 07/22/23 Range/Units 13:25 13:25 16:10 WBC 8.9 (3.8-10.6) k/uL RBC 4.54 (4.30-5.90) m/uL Hgb 13.6 (13.0-17.5) gm/dL Hct 41.4 (39.0-53.0) % MCV 91.2 (80.0-100.0) fL MCH 29.9 (25.0-35.0) pg MCHC 32.8 (31.0-37.0) g/dL RDW 12.3 (11.5-15.5) % Plt Count 266 (150-450) k/uL MPV 8.2 Neutrophils % 67 % Lymphocytes % 20 % Monocytes % 6 % Eosinophils % 5 % Basophils % 1 % Neutrophils # 6.0 (1.3-7.7) k/uL Lymphocytes # 1.8 (1.0-4.8) k/uL Monocytes # 0.5 (0-1.0) k/uL Eosinophils # 0.4 (0-0.7) k/uL Basophils # 0.1 (0-0.2) k/uL Sodium 138 (137-145) mmol/L Potassium 3.9 (3.5-5.1) mmol/L Chloride 107 (98-107) mmol/L Carbon Dioxide 23 (22-30) mmol/L Anion Gap 8 mmol/L BUN 13 (9-20) mg/dL Creatinine 0.99 (0.66-1.25) mg/dL Est GFR (CKD-EPI)AfAm >90 (>60 ml/min/1.73 sqM) Est GFR (CKD-EPI)NonAf >90 (>60 ml/min/1.73 sqM) Glucose 112 H (74-99) mg/dL Calcium 9.2 (8.4-10.2) mg/dL Magnesium 2.1 (1.6-2.3) mg/dL Total Bilirubin 0.6 (0.2-1.3) mg/dL AST 37 (17-59) U/L ALT 33 (4-49) U/L Alkaline Phosphatase 96 (38-126) U/L Total Protein 7.2 (6.3-8.2) g/dL Albumin 4.2 (3.5-5.0) g/dL Urine Color Colorless Urine Appearance Clear (Clear) Urine pH 7.0 (5.0-8.0) Ur Specific [place] 1.013 (1.001-1.035) Urine Protein Negative (Negative) Urine Glucose (UA) Negative (Negative) Urine Ketones Negative (Negative) Urine Blood Negative (Negative) Urine Nitrite Negative (Negative) Urine Bilirubin Negative (Negative) Urine Urobilinogen <2.0 (<2.0) mg/dL Ur Leukocyte Esterase Negative (Negative) Urine Opiates Screen Not Detected (NotDetected) Ur Oxycodone Screen Not Detected (NotDetected) Urine Methadone Screen Not Detected (NotDetected) Ur Barbiturates Screen Not Detected (NotDetected) U Tricyclic Antidepress Not Detected (NotDetected) Ur Phencyclidine Scrn Not Detected (NotDetected) Ur Amphetamines Screen Not Detected (NotDetected) U Methamphetamines Scrn Not Detected (NotDetected) U Benzodiazepines Scrn Not Detected (NotDetected) Urine Cocaine Screen Not Detected (NotDetected) U Marijuana (THC) Screen Not Detected (NotDetected) Serum Alcohol <10 mg/dL Disposition Clinical Impression: New onset seizure Disposition: HOME SELF-CARE Condition: Stable Instructions (If sedation given, give patient instructions): Seizure/Epilepsy Discharge Instructions & Follow-Up, New-Onset Seizure in Adults (ED) Additional Instructions: Please do follow-up with primary care physician in the next 1 or 2 days for recheck. Please discuss with your doctor regarding weaning off Wellbutrin and this should be started as soon as possible. Return for recurrent seizures, illness or fever, worsening symptoms or other concerns. No driving until 6 months seizure-free per [facility] Is patient prescribed a controlled substance at d/c from ED?: No Referrals: Kiet Tomlin Jr, DO [Primary Care Provider] - 1-2 days Time of Disposition: 16:49
[2023-07-22] MEDS: LORazepam 2 MG/ML INJ IV STA (13:32)
[2023-07-22 13:58] LABS: Basophils # (A) 0.1 k/uL (0-0.2); Basophils % (A) 1 %; Eosinophils # (A) 0.4 k/uL (0-0.7); Eosinophils % (A) 5 %; HCT 41.4 % (39.0-53.0); HGB 13.6 gm/dL (13.0-17.5); Lymphocytes # (A) 1.8 k/uL (1.0-4.8); Lymphocytes % (A) 20 %; MCH 29.9 pg (25.0-35.0); MCHC 32.8 g/dL (31.0-37.0); MCV 91.2 fL (80.0-100.0); Mean Platelet Volume 8.2; Monocytes # (A) 0.5 k/uL (0-1.0); Monocytes % (A) 6 %; Neutrophils % (A) 67 %; Platelet Count 266 k/uL (150-450); RBC 4.54 m/uL (4.30-5.90); RDW 12.3 % (11.5-15.5); WBC 8.9 k/uL (3.8-10.6)
--- NOTE | 2023-07-22 14:19 | CT ---
EXAMINATION TYPE: CT brain wo con CT DLP: 1177.4 mGycm, Automated exposure control for dose reduction was used. DATE OF EXAM: 07/22/2023 1:53 PM COMPARISON: None. CLINICAL INDICATION:Male, 38 years old with history of seizure activity, Seizure. TECHNIQUE: Brain: Axial CT images of the brain were obtained with coronal and sagittal reformats created and rev iewed. Contrast used: None. Oral contrast used: None. FINDINGS: Brain: Extra-axial spaces: No abnormal extra-axial fluid collections. Ventricular system: Within normal limits Cerebral parenchyma: No acute intraparenchymal hemorrhage or mass effect. The rebollar-white junction is well differentiated. Cerebellum: Unremarkable. Mass effect: No evidence of midline shift. Intracranial vasculature: unremarkable Soft tissues: Normal. Calvarium/osseous structures: No depressed skull fracture. Paranasal sinuses and mastoid air cells: Mild scattered paranasal sinus disease. Visualized orbits: Orbital contents are intact. IMPRESSION: No acute intracranial process.
[2023-07-22 15:58] LABS: Appearance,Urine Clear (Clear); Bilirubin,Urine Negative (Negative); Blood,Urine Negative (Negative); Color,Urine Colorless; Glucose,Urine (UA) Negative (Negative); Ketones,Urine Negative (Negative); Leukocyte Esterase,Urine Negative (Negative); Nitrite,Urine Negative (Negative); Protein,Urine Negative (Negative); Specific Gravity,Urine 1.013 (1.001-1.035); Urobilinogen,Urine <2.0 mg/dL (<2.0)
[2023-07-22 16:05] LABS: Amphetamine Screen,Urine Not Detected (NotDetected); Barbiturate Screen,Urine Not Detected (NotDetected); Benzodiazepines Screen,Urine Not Detected (NotDetected); Cocaine Screen,Urine Not Detected (NotDetected); Methadone Screen, Urine Not Detected (NotDetected); Opiate Screen,Urine Not Detected (NotDetected); Oxycodone Screen, Urine Not Detected (NotDetected); Phencyclidine Screen,Urine Not Detected (NotDetected); Tricyclic Antidepressant,Urine Not Detected (NotDetected); Urn Cannabinoid Scrn Not Detected (NotDetected)
[2023-07-22 16:37] LABS: ALT 33 U/L (4-49); AST 37 U/L (17-59); African American GFR (CKD) >90 (>60 ml/min/1.73 sqM); Albumin 4.2 g/dL (3.5-5.0); Alcohol <10 mg/dL; Alkaline Phosphatase 96 U/L (38-126); Anion Gap 8 mmol/L; Blood Urea Nitrogen 13 mg/dL (9-20); Calcium 9.2 mg/dL (8.4-10.2); Carbon Dioxide 23 mmol/L (22-30); Chloride 107 mmol/L (98-107); Glucose 112 mg/dL (74-99); Magnesium 2.1 mg/dL (1.6-2.3); Non-African American GFR(CKD) >90 (>60 ml/min/1.73 sqM); Potassium 3.9 mmol/L (3.5-5.1); Sodium 138 mmol/L (137-145); Total Bilirubin 0.6 mg/dL (0.2-1.3); Total Protein 7.2 g/dL (6.3-8.2)
[2023-07-22 17:10] VITALS: BP 131/92; PULSE 100; RESP 16
== END 2023-07-22 17:06 | disposition home or self-care (01) ==
LOC: EC 12:59
DX: G40.009 Localization-related (focal) (partial) idiopathic epilepsy and epileptic syndromes with seizures of localized onset, not intractable, without status epilepticus (principal)
CPT/HCPCS: 36415; 93005; 80053; 83735; 85025; 81003; 80306; 70450; 99285; 96374; G0480; J2060; 80320

== ENCOUNTER → 2023-08-22 | Outpatient (CLI) | payer OTHER ==
--- NOTE | 2023-08-25 18:28 | CT ---
EXAMINATION TYPE: CT abdomen w con CT DLP: 1523.9 mGycm, Automated exposure control for dose reduction was used. DATE OF EXAM: 08/22/2023 3:22 PM COMPARISON: 09/02/2017 CLINICAL INDICATION:Male, 38 years old with history of R16.1 SPLENOMEGALY; right sided abd pain TECHNIQUE: Axial CT abdomen w con;Sagittal and coronal reformats were created on a separate workstat ion. Contrast used:100 mL of Isovue 300 with IV Contrast, (none if empty) Oral contrast used: with Oral Contrast (none if empty) FINDINGS: LOWER CHEST: Unremarkable ABDOMEN LIVER: Unremarkable GALLBLADDER AND BILE DUCTS: Unremarkable. PANCREAS: Unremarkable. SPLEEN: Within normal limits for size measuring up to 11.6 cm ADRENAL GLANDS: Unremarkable. KIDNEYS AND URETERS: No evidence of hydronephrosis or renal calculus. The ureters are unremarkable. STOMACH AND BOWEL: No evidence of bowel obstruction. The appendix is normal. PERITONEUM/RETROPERITONEUM: No evidence of pneumoperitoneum or free fluid. VASCULATURE: No evidence of aortic aneurysm. MUSCULOSKELETAL: No acute osseous abnormalities LYMPH NODES: No gross evidence for lymphadenopathy. SOFT TISSUE/ABDOMINAL WALL: Fat-containing buccal hernia. IMPRESSION: 1. No evidence for acute right-sided process to explain the patient's pain. No obstructive uropathy. The appendix is visualized and normal. 2. No evidence for splenomegaly.
== END | disposition home or self-care (01) ==
LOC: RADCTMAIN 14:15
PROVIDERS: ATTEND Internal Medicine Hematology & Oncology
DX: R16.1 Splenomegaly, not elsewhere classified (principal); R10.9 Unspecified abdominal pain; I10 Essential (primary) hypertension
CPT/HCPCS: 74160; Q9967